=== PATIENT | male | born 1955 | race Caucasian/White ===

== ENCOUNTER 2018-02-02 22:34 | Inpatient (IN) | payer OTHER ==
[~2018-02-02] VITALS: Ht 177.8 cm; Wt 105.8 kg
[~2018-02-02 22:34] MED LIST: AUGMENTIN 875 M1 TAB PO; AUGMENTIN 875-1 EACH PO; BUPROPION HYDR300 M1 PO; CIPRODEX OTIC7.5 ML OT; CLONAZEPAM0.5 MG PO; DULOXETINE60 MG PO; MELOXICAM15 MG PO; NEURONTIN300 MG PO; PRAZOSIN HCL1 MG PO; ZIPRASIDONE HYD PO
--- NOTE | 2018-02-02 22:40 | ED CARDIAC/CP/PALPITATIONS ---
History of Present Illness General Chief Complaint: General Adult Stated Complaint: "ANXIETY OR HEART ATTACK" Source: patient Exam Limitations: no limitations Vital Signs & Intake/Output Vital Signs & Intake/Output Vital Signs Date Time Temp Pulse Resp B/P B/P Pulse O2 O2 Flow FiO2 Mean Ox Delivery Rate 02/03 0322 98.4 94 20 106/74 97 Room Air 02/03 0256 87 02/03 0221 144 142/80 / 0221 156 121/77 02/03 0221 156 121/77 02/03 0215 126 127/85 02/03 0215 126 127/85 02/03 0200 156 20 142/80 96 Room Air 02/03 0145 160 20 121/77 98 Room Air 02/03 0136 Room Air 02/02 2252 97.2 126 22 127/85 99 Allergies Coded Allergies: NO KNOWN ALLERGIES (06/02/12) Reconcile Medications Bupropion HCl (Wellbutrin Sr) 200 MG TABLET.ER 1 TAB PO BID MENTAL HEALTH ( Reported) Clonazepam 1 MG TABLET 1 TAB PO DAILY PRN ANXIETY (Reported) Gabapentin 300 MG CAPSULE 1 CAP PO TID MENTAL HEATLH (Reported) Triage Nurses Notes Reviewed? yes Onset: Abrupt Duration: minute(s): Timing: single episode today Quality/Severity: moderate Location: central, epigastric Radiation: no radiation Activities at Onset: emotional stress Modifying Factors: Improves With: rest. HPI: 62 yo gentleman, in prior good health, presents with 15-30 minutes of anxiety, and mid epigastric and central chest palpitions. "I was talking with my friend who has been going through some problems... and then I suddenly felt a pounding and a tightness in my chest and upper abdomen.... I got really anxious." He states that he was on clonazepam, but stopped recently. He notes no radiation, fever, chills, dyspnea, chest pain. He is otherwise well. Past History Travel History Traveled to [place] past 21 day No Medical History Any Pertinent Medical History? 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 No Review of Systems Review of Systems Constitutional: Denies: see HPI. Physical Exam Physical Exam Cardiovascular: regular rate/rhythm Comments: Review of Systems - except as otherwise noted in HPI Review of Systems Constitutional:no symptoms. EENTM:no symptoms. Respiratory:no symptoms. Cardiovascular:no symptoms. GI:no symptoms. Genitourinary:no symptoms. Musculoskeletal:no symptoms. Skin:no symptoms. Neurological/Psychological:no symptoms. Hematologic/Endocrine:no symptoms. Immunologic/Allergic:no symptoms. All Other Systems: Reviewed and Negative Physical Exam Physical Exam General Appearance: well developed/nourished, no apparent distress Head: atraumatic, normal appearance Eyes: Bilateral: normal appearance. Ears, Nose, Throat: normal pharynx, normal ENT inspection Neck: normal inspection, supple, full range of motion Respiratory: normal breath sounds, chest non-tender, no respiratory distress, quiet respiration, lungs clear Cardiovascular: tachycardic Gastrointestinal: normal bowel sounds, soft, non-tender, no organomegaly Back: normal inspection, normal range of motion Extremities: normal inspection, normal capillary refill, normal range of motion, no edema Neurologic/Psych: no motor/sensory deficits, awake, alert, oriented x 3 Skin: intact, normal color, warm/dry Core Measures ACS in differential dx? No CVA/TIA Diagnosis No Sepsis Present: No Sepsis Focused Exam Completed? No Progress Differential Diagnosis: anxiety vs sinus tach vs afib vs svt vs other. Plan of Care: Orders Procedure Date/time Status Regular Diet 02/03 B Active PARTIAL THROMBOPLASTIN TIME 02/03 0945 Active TROPONIN LEVEL 02/04 800 Active EKG 02/03 08 Active CBC WITHOUT DIFFERENTIAL 02/03 06 Active BASIC ELECTROLYTES PLUS BUN&CR 02/03 06 Active URINE DRUGS OF ABUSE 02/03 0356 Active Pathway - chart 02/03 0351 Active ECHOCARDIOGRAM 02/03 0351 Active Add-on Test (ER Only) 02/03 0304 Active Weight 02/03 0301 Active Patient Data 02/03 0259 Active Saline Lock 02/03 257 Active Misc Message 02/03 257 Active ED Holding Orders 02/03 257 Active Admit to inpatient 02/03 257 Active Vital Signs 02/03 257 Active Code Status 07/09 0257 Active EKG 02/03 0213 Active Add-on Test (ER Only) 02/03 0211 Active TROPONIN LEVEL 02/03 0130 Complete EKG 02/03 0130 Active Intake & Output 02/03 0107 Active Pathway - chart 02/03 UNK Active House Staff 02/03 UNK Active VTE Mechanical Prophylaxis 02/03 UNK Active Vital Signs 02/03 UNK Active Intake & Output 02/03 UNK Active Activity/Ambulation 02/03 UNK Active THYROID STIMULATING HORMONE 02/02 225 Complete PARTIAL THROMBOPLASTIN TIME 02/02 225 Complete PROTHROMBIN TIME 02/02 225 Complete TROPONIN LEVEL 02/02 224 Complete LIPASE 02/02 224 Complete HEPATIC FUNCTION PANEL 02/02 224 Complete D-DIMER 02/02 224 Complete CBC WITHOUT DIFFERENTIAL 02/03 2240 Complete BASIC METABOLIC PANEL 02/02 224 Complete AMYLASE 02/03 2240 Complete EKG 02/02 223 Active Current Medications Sig/Cresencio Start time Last Medication Dose Stop Time Status Admin Aspirin 81 MG DAILY 02/03 900 UNVr (Aspirin) Bupropion HCl 200 MG BID 02/03 900 UNVr (Wellbutrin SR) Gabapentin 300 MG TID 02/03 900 UNVr (Neurontin) Diltiazem HCl 60 MG Q6 02/03 600 UNVr (Cardizem) Clonazepam 1 MG DAILY PRN 02/03 0400 UNVr (Klonopin 1MG Tab) 02/10 0359 Heparin Sodium 25,000 UNIT Q24H 02/03 0315 UNVr 02/03 (Porcine) 0346 (Heparin) Sodium Chloride 500 ML Heparin Sodium 25,000 UNIT Q24H 02/03 0245 CAN (Porcine) (Heparin) Sodium Chloride 500 ML Laboratory Tests 02/03/18 0137: Troponin I < 0.01 02/02/182251: Anion Gap 15, Estimated GFR > 60, BUN/Creatinine Ratio 15.0, Glucose 137 H, Calcium 9.7, Total Bilirubin 0.8, Direct Bilirubin 0.3, AST 37, ALT 66, Alkaline Phosphatase 71, Troponin I < 0.01, Total Protein 7.5, Albumin 4.7, Amylase 41, Lipase 82, TSH 1.610, PT 12.0, INR 1.10, APTT 25, D-Dimer High Sensitivty < 200, CBC w Diff NO MAN DIFF REQ, RBC 5.01, MCV 95.9 H, MCH 33.3 H, MCHC 34.7, RDW 12.9, MPV 8.2, Gran % 62.7, Lymphocytes % 28.8, Monocytes % 5.5, Eosinophils % 2.2, Basophils % 0.8, Absolute Granulocytes 6.0, Absolute Lymphocytes 2.8, Absolute Monocytes 0.5, Absolute Eosinophils 0.2, Absolute Basophils 0.1 Diagnostic Imaging: Viewed by Me: Radiology Read. Discussed w/RAD: Radiology Read. CXR Impression: PATIENT: PRESTON FORDE PRESENT AGE: 62 PATIENT ACCOUNT NO: [id number] : 57 LOCATION: [facility] ORDERING PHYSICIAN: Delon Luna MD SERVICE DATE: 02/02/18 EXAM TYPE: RAD - XRY- PORTABLE CHEST XRAY EXAMINATION: XR PORTABLE CHEST CLINICAL INFORMATION: Chest pain COMPARISON: None TECHNIQUE: Portable frontal view of the chest was obtained. FINDINGS: The lungs are well expanded. There is no focal consolidation , edema, or effusion. No pneumothorax. The cardiomediastinal silhouette is within normal limits. No acute osseous abnormality. IMPRESSION: No acute pulmonary findings. DICTATED BY: Zion Kellogg MD DATE/TIME DICTATED:2340 [address] OPERATOR:ARIELA DATE/TIME TRANSCRIBED:02/02/182340 CONFIDENTIAL, DO NOT COPY WITHOUT APPROPRIATE AUTHORIZATION. <Electronically signed in Other Vendor System> SIGNED BY: Zion Kellogg MD 02/02/182344 Initial ED EKG: sinus tach vs svt Repeat EKG: unchanged Comments: ekg #3... afib, pulse 80's Departure Departure Disposition: HOME OR SELF CARE Condition: Stable Clinical Impression Primary Impression: Chest pain Secondary Impressions: Atrial fibrillation with rapid ventricular response Referrals: Sunny Berger MD (PCP/Family) Departure Forms: Customer Survey General Discharge Information Admission Note Spoke With: Albino Kwon MD Documentation of Exam: Documentation of any treatments & extenuating circumstances including Concerns Regarding Discharge (functional status, medication knowledge or non-compliance, living conditions, etc.) that warrant an admission rather than observation: pt with new onset afib, presenting with tachycardia. now rate controlled after lopressor 5mg iv, diltiazem 20mg iv, lopressor 50mg ... pt feeling more comfortable. Critical Care Note Critical Care Note Critical Care Time: 30-74 min Comments: pt with svt vs sinus tach... pt given adenosine 6mg without it breaking, then 12mg without it breaking, then lopressor 5mg, diltiazem 20mg.... pulse irregular in 80's... ekg #3, afib.
[2018-02-02 23:01] LABS: ABSOLUTE BASOPHIL COUNT 0.1 /CUMM (0.0-0.2); ABSOLUTE EOSINOPHIL COUNT 0.2 /CUMM (0.0-0.7); ABSOLUTE LYMPH COUNT 2.8 /CUMM (1.2-3.4); ABSOLUTE MONOCYTE COUNT 0.5 /CUMM (0.10-0.60); BASOPHIL % 0.8 % (0.0-2.0); EOSINOPHIL % 2.2 % (0-5); GRANULOCYTE % 62.7 % (42.2-75.2); MEAN CORPUSCULAR HGB 33.3 PG (27.0-31.0); MEAN CORPUSCULAR HGB CONC 34.7 G/DL (33.0-37.0); MEAN CORPUSCULAR VOLUME 95.9 FL (80.0-94.0); MEAN PLATELET VOLUME 8.2 FL (7.4-10.4); PLATELET COUNT 236 /CUMM (130-400); RBC DISTRIBUTION WIDTH 12.9 % (11.5-14.5); RED BLOOD CELL CT 5.01 /CUMM (4.70-6.10); WHITE BLOOD CELL COUNT 9.6 /CUMM (4.8-10.8)
--- NOTE | 2018-02-02 23:45 | RADIOLOGY REPORT ---
EXAMINATION: XR PORTABLE CHEST CLINICAL INFORMATION: Chest pain COMPARISON: None TECHNIQUE: Portable frontal view of the chest was obtained. FINDINGS: The lungs are well expanded. There is no focal consolidation, edema, or effusion. No pneumothorax. The cardiomediastinal silhouette is within normal limits. No acute osseous abnormality. IMPRESSION: No acute pulmonary findings.
--- NOTE | 2018-02-03 03:09 | History & Physical ---
JohnAbiolacan 02/03/18 0307: General Information and HPI MD Statement: I have seen and personally examined PRESTON VAZQUEZ and documented this H&P. The patient is a 62 year old M who presented with a patient stated chief complaint of chest tigtness, and palpitations Source of Information: patient Exam Limitations: no limitations History of Present Illness: Mr Vazquez is a 62-year-old gentleman was known to be in his usual state of health until a few hours prior to presentation. He has a past medical history of hyperlipidemia, bipolar disease, depression, anxiety. He came to the ER with a chief concern of palpitations and chest discomfort that started a few hours prior to presentation, after he had some emotional discussion with his close friend. He noticed palpitations that lasted for approximately few minutes, and was associated with epigastric discomfort. Also reported dizziness. No fever, chills, but has been having continued diarrheal episodes x 2-3 per day which is being worked up by GI for a possible malalbsorptive disorder. No neurological symptoms. Recent use of slightly increased use of coffee. Reported similar complaints a few months ago, and 10 m ago when he had ezcess use of alcohol but didnt pay much attention to these symptoms. No ivda, or alcohol use. He is not been drinking since he was told that he has fatty liver disease. No family h/o CAD, cancers. Reported to have increased depressive episodes lately, and has been using wellbutrin and clonazapam for tx. He was admitted to inpatient psych in the past, and reported to have been dealing with many social issues. 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 Psychosocial History Where do you live? Home Who Do You Live With? self ETOH Use: denies use Review of Systems Review of Systems Constitutional: Denies: diaphoresis, fever, malaise, weakness. EENTM: Denies: blurred vision, visual changes. Cardiovascular: Reports: palpitations. Denies: chest pain, edema, peripheral edema, syncope. Respiratory: Denies: cough. GI: Denies: abdominal pain. Genitourinary: Denies: dysuria, hematuria. Musculoskeletal: Denies: back pain. Skin: Denies: change in skin color. Neurological/Psychological: Reports: anxiety. Hematologic/Endocrine: Denies: bruising. Exam & Diagnostic Data Last 24 Hrs of Vital Signs/I&O Vital Signs Date Time Temp Pulse Resp B/P B/P Pulse O2 O2 Flow FiO2 Mean Ox Delivery Rate 02/03 0322 98.4 94 20 106/74 97 Room Air 02/03 0256 87 02/03 0221 144 142/80 02/03 0221 156 121/77 02/03 0221 156 121/77 02/03 0215 126 127/85 02/03 0215 126 127/85 02/03 0200 156 20 142/80 96 Room Air 02/03 0145 160 20 121/77 98 Room Air 02/03 0136 Room Air 02/02 2252 97.2 126 22 127/85 99 Intake & Output 02/03 0800 02/03 0000 02/02 1600 Intake Total 0 Output Total Balance 0 Intake, Oral 0 Patient 232 lb Weight Weight Standing Scale Measurement Method Physical Exam General Appearance Alert, Oriented X3, Cooperative, No Acute Distress Skin No Rashes, No Breakdown Skin Temp/Moisture Exam: Warm/Dry Sepsis Skin Exam (color): Normal for Ethnicity HEENT Atraumatic, PERRLA, EOMI, Mucous Membr. moist/pink Neck Supple, No JVD, No thryomegaly, +2 Carotid Pulse wo Bruit, No LAD Lymphatic Axillary nl, Cervical nl Cardiovascular Normal S1, Normal S2, No Murmurs, irregular Lungs Clear to Auscultation, Normal Air Movement Abdomen Normal Bowel Sounds, Soft, No Tenderness, No Hepatospenomegaly, No Masses Neurological Normal Speech, Strength at 5/5 X4 Ext, Normal Tone, Sensation Intact, Cranial Nerves 3-12 NL, Reflexes 2+ Extremities No Clubbing, No Cyanosis, No Edema, Normal Pulses Vascular Normal Pulses, Pulses Symmetrical Last 24 Hrs of Labs/Eilas: Laboratory Tests 02/03/18 0137: Troponin I < 0.01 07/08/18 2252: Anion Gap 15, Estimated GFR > 60, BUN/Creatinine Ratio 15.0, Glucose 137 H, Calcium 9.7, Total Bilirubin 0.8, Direct Bilirubin 0.3, AST 37, ALT 66, Alkaline Phosphatase 71, Troponin I < 0.01, Total Protein 7.5, Albumin 4.7, Amylase 41, Lipase 82, TSH 1.610, PT 12.0, INR 1.10, APTT 25, D-Dimer High Sensitivty < 200, CBC w Diff NO MAN DIFF REQ, RBC 5.01, MCV 95.9 H, MCH 33.3 H, MCHC 34.7, RDW 12.9, MPV 8.2, Gran % 62.7, Lymphocytes % 28.8, Monocytes % 5.5, Eosinophils % 2.2, Basophils % 0.8, Absolute Granulocytes 6.0, Absolute Lymphocytes 2.8, Absolute Monocytes 0.5, Absolute Eosinophils 0.2, Absolute Basophils 0.1 Diagnostic Data EKG Results Inital ekg- NSVT vs Afib Repeat EKG revealed Afib, HR 80s, No STTWI. Assessment/Plan Assessment: Mr Vazquez is a 62-year-old gentleman was known to be in his usual state of health until a few hours prior to presentation. He has a past medical history of hyperlipidemia, bipolar disease, depression, anxiety is being evaluated for new onset Atrial fibriallation, likely secondary to age or stimulants. At the time of admission-temperature 97.2, pulse rate 127, respiration 22, blood pressure 127/85, pulse ox 99% on room air. Pertinent Findings- sodium 142, potassium 3.5, anion gap 15, bicarbonate 23 BUN 15, creatinine 1.0. AST 37, ALT 66, alkaline phosphatase 71. Troponin I-0.01, 0.01. [id number] than 200. EKG revealed SVT possibly AVNRT. He was given adenosine IV 6 mg, 12 mg without any effect. He later received Lopressor 5 mg, diltiazem 20 mg. Continues to have heart rate in 80s. Chest x-ray-The lungs are well expanded. There is no focal consolidation, edema, or effusion. No pneumothorax. The cardiomediastinal silhouette is within normal limits. No acute osseous abnormality. No acute pulmonary findings. Etiology in this case of this arrhythmia with seemingly disorganized atrial depolarizations without effective atrial contraction is likely atrial fibrillation. Immediate treatment becomes imperative because it causes loss of organized atrial contractions and rapid ventricular rate that decreases his cardiac output and makes the prone to embolus formation. Etiology of Afib is likely drugs or alcohol, obesity, electrolyte abnormalities from his diarrha, or underlying cardiac disease such as cardiomyopathy, coronary artery disease. Age -related idiopathic causes are also likely. History indicates that the symptoms began < 48 hours, which would direct the treatment options. CHADVASC score 0/1. Problem list: 1. New onset Afib 2. R/o ACS 3. H/o Bipolar disease Plan: Admit the patient to telemetry service Monitor vitals closely for changes in hemodynamic status. Immediate synchronized electrical cardioversion if the patient is unstable. Rate control for now w/ Diltiazem 60mg q8. If the heart rate is not adequately controlled consider amiodarone for refractory atrial fibrillation. Plan for elective cardioversion with making sure the patient is anticoagulated with therapeutic levels for at least 4 weeks w/ a possible DOAC Continue his wellbutrin, clonapin. Check utox. He was already started on IV heparin, which could be continued for now; Defer the decision to the cards for now. Echocardiogram Code-Full code. As Ranked By This Provider Problem List: 1. Atrial fibrillation with rapid ventricular response Core Measures/Misc (04/14) Acute Coronary Syndrome ACS Diagnosis: No Congestive Heart Failure Congestive Heart Failure Diagnosis No VTE (View Protocol) VTE Risk Factors Acute Medical Illness No Mechanical VTE Prophylaxis d/t N/A MechProphylax Ordered No VTE Pharm Prophylaxis d/t NA PharmProphylax ordered Sepsis (View protocol) If YES complete Sepsis Event Note If YES complete Sepsis Event Note [place] 02/03/18 0543: General Information and HPI MD Statement: I have seen and personally examined EULAPRESTON Johnson and documented this H&P. The patient is a 62 year old M who presented with a patient stated chief complaint of [tachyarrythmia]. Source of Information: patient Exam Limitations: no limitations Allergies/Medications Home Med list Aspirin (Aspirin*) 81 MG TAB.CHEW 1 TAB PO DAILY HEART HEALTH Bupropion HCl (Wellbutrin Sr) 200 MG TABLET.ER 1 TAB PO BID MENTAL HEALTH ( Reported) Clonazepam 1 MG TABLET 1 TAB PO DAILY PRN ANXIETY (Reported) Gabapentin 300 MG CAPSULE 1 CAP PO TID MENTAL HEATLH (Reported) Past History Medical History Cardiovascular: hyperlipidemia Psychiatric: bipolar disease, DEPRESSION,ANXIETY, Surgical History Surgical History: non-contributory Past Family/Social History Psychosocial History ETOH Use: denies use Review of Systems Review of Systems Constitutional: Reports: see HPI. Exam & Diagnostic Data Last 24 Hrs of Vital Signs/I&O Vital Signs Date Time Temp Pulse Resp B/P B/P Pulse O2 O2 Flow FiO2 Mean Ox Delivery Rate 02/03 0322 98.4 94 20 106/74 97 Room Air 02/03 0256 87 02/03 0221 144 142/80 02/03 0221 156 121/77 02/03 0221 156 121/77 02/03 0215 126 127/85 02/03 0215 126 127/85 02/03 0200 156 20 142/80 96 Room Air 02/03 0145 160 20 121/77 98 Room Air 02/03 0136 Room Air 02/02 2252 97.2 126 22 127/85 99 Intake & Output 02/03 0800 02/03 0000 02/02 1600 Intake Total 0 Output Total Balance 0 Intake, Oral 0 Patient 232 lb Weight Weight Bed scale Measurement Method Physical Exam General Appearance Alert, Oriented X3, Cooperative, No Acute Distress Skin No Rashes, No Breakdown Skin Temp/Moisture Exam: Warm/Dry HEENT Atraumatic, PERRLA, EOMI, Mucous Membr. moist/pink Neck Supple, No JVD, No thryomegaly, +2 Carotid Pulse wo Bruit, No LAD Lymphatic Axillary nl, Cervical nl Cardiovascular Normal S1, Normal S2, No Murmurs, irregular irregular Lungs Clear to Auscultation, Normal Air Movement Abdomen Normal Bowel Sounds, Soft, No Tenderness, No Hepatospenomegaly, No Masses Neurological Normal Gait, Normal Speech Extremities No Clubbing, No Cyanosis Vascular Normal Pulses, Pulses Symmetrical Last 24 Hrs of Labs/Elias: Laboratory Tests 02/03/18 0137: Troponin I < 0.01 02/02/182251: Anion Gap 15, Estimated GFR > 60, BUN/Creatinine Ratio 15.0, Glucose 137 H, Calcium 9.7, Total Bilirubin 0.8, Direct Bilirubin 0.3, AST 37, ALT 66, Alkaline Phosphatase 71, Troponin I < 0.01, Total Protein 7.5, Albumin 4.7, Amylase 41, Lipase 82, TSH 1.610, PT 12.0, INR 1.10, APTT 25, D-Dimer High Sensitivty < 200, CBC w Diff NO MAN DIFF REQ, RBC 5.01, MCV 95.9 H, MCH 33.3 H, MCHC 34.7, RDW 12.9, MPV 8.2, Gran % 62.7, Lymphocytes % 28.8, Monocytes % 5.5, Eosinophils % 2.2, Basophils % 0.8, Absolute Granulocytes 6.0, Absolute Lymphocytes 2.8, Absolute Monocytes 0.5, Absolute Eosinophils 0.2, Absolute Basophils 0.1 Core Measures/Misc (04/14) Acute Coronary Syndrome ACS Diagnosis: Yes Congestive Heart Failure Congestive Heart Failure Diagnosis No Cerebrovascular Accident CVA/TIA Diagnosis: No VTE (View Protocol) VTE Risk Factors Acute Medical Illness No Mechanical VTE Prophylaxis d/t N/A MechProphylax Ordered No VTE Pharm Prophylaxis d/t NA PharmProphylax ordered Sepsis (View protocol) Sepsis Present: No If YES complete Sepsis Event Note If YES complete Sepsis Event Note Attending MD Review Statement Attending Statement Attending MD Statement: examined this patient, discuss w/resident/PA/HEMODIALYSIS PATIENT CARE SPECIALIST, agreed w/resident/PA/HEMODIALYSIS PATIENT CARE SPECIALIST, amended to note Attending Assessment/Plan: This patient is a 62-year-old white male was known to be in his usual state of health until a few hours prior to presentation. He has a past medical history of hyperlipidemia, bipolar disease, depression, anxiety is being evaluated for new onset atrial fibrillation. Troponin I-0.01, 0.01. [id number] than 200. EKG revealed SVT possibly AVNRT. He was given adenosine IV 6 mg, 12 mg without any effect. He later received Lopressor 5 mg, diltiazem 20 mg. Continues to have heart rate in 80s. No clear etiology identified. Rate control for now w/ Diltiazem 60mg q8. Plan for elective cardioversion with making sure the patient is anticoagulated with therapeutic levels for at least 4 weeks w/ a possible DOAC. R/O ACS.
[2018-02-03 03:17] LABS: PTT 25 SEC (25-37)
[2018-02-03] MEDS ORDERED: WELLBUTRIN SR200 M2 PO (03:53)
[2018-02-03] MEDS ORDERED: GABAPENTIN300 M2 PO (03:53)
[2018-02-03] MEDS ORDERED: CLONAZEPAM1 M2 PO (03:54)
[2018-02-03 06:04] VITALS: BP 110/60
--- NOTE | 2018-02-03 07:07 | PN- Housestaff ---
Jose Luis Mota 02/03/18 0706: Subjective Follow-up For: Chest pain, palpitations, atrial fibrillation Tele-Events Since Last Visit: Patient newly admitted to tele Subjective: Patient seen seated comfortably at the bedside, finishing breakfast. Patient explains that he came into the emergency department after experiencing a pressure-like chest pain, with an impending sense of dread, palpitations, and dizziness while driving. Patient reports that the symptoms have since resolved, but is agreeable as an inpatient for further cardiac workup. Patient has a history of anxiety, denies shortness of breath, lower extremity swelling/pain/ edema, cough. Review of Systems Constitutional: Denies: chills, diaphoresis, fever, malaise. Cardiovascular: Denies: chest pain, palpitations, peripheral edema. Respiratory: Denies: cough, short of breath, wheezing. Gastrointestinal: Denies: abdominal pain, nausea, vomiting. Objective Last 24 Hrs of Vital Signs/I&O Vital Signs Date Time Temp Pulse Resp B/P B/P Pulse O2 O2 Flow FiO2 Mean Ox Delivery Rate 02/03 0609 110 110/60 02/03 0604 97.9 110 20 110/60 96 02/03 0322 98.4 94 20 106/74 97 Room Air 02/03 0256 87 / 0221 144 142/80 / 0221 156 121/77 02/03 0221 156 121/77 02/03 0215 126 127/85 02/03 0215 126 127/85 02/03 0200 156 20 142/80 96 Room Air 02/03 0145 160 20 121/77 98 Room Air 02/03 0136 Room Air 02/02 2252 97.2 126 22 127/85 99 Intake & Output 02/03 0800 02/03 0000 02/02 1600 Intake Total 120 Output Total Balance 120 Intake, Oral 120 Patient 105.29 kg Weight Weight Bed scale Measurement Method Physical Exam General Appearance: Alert, Oriented X3, Cooperative, No Acute Distress Cardiovascular: Regular Rate, Normal S1, Normal S2, No Murmurs Lungs: Clear to Auscultation Abdomen: Normal Bowel Sounds, Soft, No Tenderness Neurological: Normal Gait, Normal Speech Extremities: No Clubbing, No Cyanosis, No Edema Vascular: Normal Pulses Current Medications: Current Medications Sig/Cresencio Start time Last Medication Dose Route Stop Time Status Admin Adenosine 12 MG ONCE ONE 02/03 215 DC 02/03 IV 02/03 0216 0215 Adenosine 0 .STK-MED ONE 02/03 0206 DC IV Adenosine 6 MG ONCE ONE 02/030 DC 02/03 IV 02/03 020 0221 Adenosine 0 .STK-MED ONE 02/03 020 DC IV Aspirin 81 MG DAILY 02/03 900 AC PO Aspirin 0 .STK-MED ONE 02/03 0315 DC PO Aspirin 325 MG ONCE ONE 02/03 0245 DC 02/03 PO 02/03 0246 0321 Bupropion HCl 200 MG BID 02/03 900 AC PO Clonazepam 1 MG DAILY PRN 02/03 0400 AC PO 02/10 0359 Diltiazem HCl 60 MG Q6 02/03 600 AC 02/03 PO 06 Diltiazem HCl 20 MG ONCE ONE 02/03 215 DC 02/03 IV 02/03 021 0221 Diltiazem HCl 0 .STK-MED ONE 02/03 021 DC .ROUTE Gabapentin 300 MG TID 02/03 900 AC PO Heparin Sodium 25,000 UNIT Q24H 02/03 0315 AC 02/03 (Porcine) IV 0346 Sodium Chloride 500 ML Heparin Sodium 0 .STK-MED ONE 02/03 0315 DC (Porcine) .ROUTE Heparin Sodium 5,000 UNIT ONCE ONE 02/03 0245 DC 02/03 (Porcine) IV 02/03 024 0321 Heparin Sodium 25,000 UNIT Q24H 02/03 0245 CAN (Porcine) IV Sodium Chloride 500 ML Lorazepam 0 .STK-MED ONE 02/03 0109 DC PO Lorazepam 1 MG ONE ONE 02/02 2300 DC 02/03 PO 02/02 230 0110 Metoprolol Tartrate 50 MG ONCE ONE 02/03 021 DC 02/03 PO 02/03 021 0215 Metoprolol Tartrate 0 .STK-MED ONE 02/03 0212 DC PO Metoprolol Tartrate 0 .STK-MED ONE 02/03 205 DC IV Metoprolol Tartrate 5 MG ONCE ONE 02/03 020 DC 02/03 IV 02/03 201 0221 Potassium Chloride 40 MEQ ONCE ONE 02/03 0715 UNVr PO 02/04 716 Last 24 Hrs of Lab/Elias Results Last 24 Hrs of Labs/Mics: Laboratory Tests 02/03/18 0137: Troponin I < 0.01 02/02/18 4012: Anion Gap 15, Estimated GFR > 60, BUN/Creatinine Ratio 15.0, Glucose 137 H, Calcium 9.7, Magnesium Pending, Total Bilirubin 0.8, Direct Bilirubin 0.3, AST 37, ALT 66, Alkaline Phosphatase 71, Troponin I < 0.01, Total Protein 7.5, Albumin 4.7, Amylase 41, Lipase 82, TSH 1.610, PT 12.0, INR 1.10, APTT 25, D- Dimer High Sensitivty < 200, CBC w Diff NO MAN DIFF REQ, RBC 5.01, MCV 95.9 H, MCH 33.3 H, MCHC 34.7, RDW 12.9, MPV 8.2, Gran % 62.7, Lymphocytes % 28.8, Monocytes % 5.5, Eosinophils % 2.2, Basophils % 0.8, Absolute Granulocytes 6.0, Absolute Lymphocytes 2.8, Absolute Monocytes 0.5, Absolute Eosinophils 0.2, Absolute Basophils 0.1 Assessment/Plan Assessment: Patient is a 62-year-old male who presented to the emergency department after experiencing pressure-like chest pain with an impending sense of dread and palpitations with dizziness while driving. Patient has a history of anxiety, pressure and bipolar disorder, and attributes these symptoms in part to recent stressful news regarding help a friend as well as extra coffee he had drank. Patient denied history of obstructive sleep apnea. In the ED he was found to be in atrial fibrillation. 8-year-old male being treated for atrial fibrillation 1. Atrial fibrillation 2. Anxiety, depression, bipolar disorder Problem List: 1. Atrial fibrillation 2. Chest pain 3. Anxiety 4. Dizziness 5. Bipolar 1 disorder Pain Ratin Pain Location: none Pain Goal: Pain 4 or less Pain Plan: tylenol Tomorrow's Labs & Rationales: BAYRON Jerry MD,Dwain 02/03/18 1422: Attending MD Review Statement Attending Statement Attending MD Statement: examined this patient, discuss w/resident/PA/SPECIALTY DEVELOPMENT CONSULTANT, agreed w/resident/PA/SPECIALTY DEVELOPMENT CONSULTANT, reviewed EMR data (avail), discussed with nursing, discussed with case mgmt, amended to note Attending Assessment/Plan: Patient seen and examined. Resting comfortably not in any acute distress. Denies chest pain or palpitations. Denies shortness of breath. He converted earlier this morning back to normal sinus rhythm. Patient reports that he has had similar palpitations on 2 occasions in the past he however did not seek medical attention at that time. His chads 2 vascular score is 0 although his echocardiogram is currently not available for review. This will place him at very low risk for cardioembolic events. TSH is within normal limits. He does not give history suggestive of obstructive sleep apnea. He has no underlying history of hypertension. He is not hypoxic and his d-dimer is negative making pulmonary embolism less likely. Plan: -Follow-up echocardiogram. -Follow-up with cardiology service regarding rate control regimen and need for long-term anticoagulations therapy. -He may be discharged home later on today if no further testing and intervention is recommended by the cardiology service
[2018-02-03 08:18] LABS: PTT 52 SEC (25-37)
[2018-02-03 08:25] LABS: ABSOLUTE BASOPHIL COUNT 0.1 /CUMM (0.0-0.2); ABSOLUTE EOSINOPHIL COUNT 0.3 /CUMM (0.0-0.7); ABSOLUTE GRANULOCYTE CT 5.4 /CUMM (1.4-6.5); ABSOLUTE LYMPH COUNT 2.3 /CUMM (1.2-3.4); ABSOLUTE MONOCYTE COUNT 0.4 /CUMM (0.10-0.60); BASOPHIL % 0.8 % (0.0-2.0); EOSINOPHIL % 3.3 % (0-5); GRANULOCYTE % 64.1 % (42.2-75.2); HEMATOCRIT 44.4 % (42-52); MEAN CORPUSCULAR HGB 33.1 PG (27.0-31.0); MEAN CORPUSCULAR HGB CONC 34.7 G/DL (33.0-37.0); MEAN CORPUSCULAR VOLUME 95.5 FL (80.0-94.0); MEAN PLATELET VOLUME 8.8 FL (7.4-10.4); PLATELET COUNT 208 /CUMM (130-400); RBC DISTRIBUTION WIDTH 13.4 % (11.5-14.5); RED BLOOD CELL CT 4.65 /CUMM (4.70-6.10); WHITE BLOOD CELL COUNT 8.4 /CUMM (4.8-10.8)
--- NOTE | 2018-02-03 11:24 | Patient Discharge Instructions ---
Discharge Instructions General Discharge Information You were seen/treated for: Atrial fibrillation Special Instructions: If you experience chest pain, dizziness, shortness of breath or palpitations, please go to your nearest emergency room. Also, please follow up with your statistics teacher and primary care provider in a week of discharge. Diet Continue normal diet: Yes Recommended Diet: Heart Healthy Activity Full Activity/No Limits: No Activity Self Limited: Yes Acute Coronary Syndrome Inclusion Criteria At DC or during hospital stay patient has or had the following: ACS DIAGNOSIS No Discharge Core Measures Meds if any: Prescribed or Continued at Discharge Meds if any: NOT Prescribed or Continued at Discharge Congestive Heart Failure Inclusion Criteria At DC or during hospital stay patient has or had the following: CHF DIAGNOSIS No Discharge Core Measures Meds if any: Prescribed or Continued at Discharge Meds if any: NOT Prescribed or Continued at Discharge Cerebrovascular accident Inclusion Criteria At DC or during hospital stay patient has or had the following: CVA/TIA Diagnosis No Discharge Core Measures Meds if any: Prescribed or Continued at Discharge Meds if any: NOT Prescribed or Continued at Discharge Venous thromboembolism Inclusion Criteria VTE Diagnosis No VTE Type NONE VTE Confirmed by (Test) NONE Discharge Core Measures - Per Current guidelines, there needs to be overlap - treatment for the first 5 days of Warfarin therapy. - If discharged on Warfarin prior to 5 days of - overlap therapy, the patient will need to be - assessed for post discharge needs including - *Post discharge parental anticoagulation - *Warfarin and/or parental anticoagulation education - *Follow up date to check INR post discharge At least 5 days overlap therapy as Inpatient No Meds if any: Prescribed or Continued at Discharge Note: Overlap Therapy is Warfarin and Anticoagulant Meds if any: NOT Prescribed or Continued at Discharge
[2018-02-03 13:17] VITALS: BP 110/82
[2018-02-03 14:49] VITALS: BP 102/72
[2018-02-03] MEDS ORDERED: ASPIRIN81 M4 PO (15:22)
[2018-02-03 17:26] LABS: PTT 68 SEC (25-37)
--- NOTE | 2018-02-03 20:03 | Cons- Cardiology ---
General Information and HPI Consulting Request Date of Consult: 02/03/18 Requested By: Dwain Jerry MD History of Present Illness: This patient is a 62 year old male with history of dyslipidemia who presented to the ER for evaluation of a single episode of chest discomfort. It was described as a moderate pressure sensation that was not radiating and lasted for about 30 minutes before resolving. He also noted mild shortness of breath and palpitations. The chest discomfort began while sitting in a car having an emotional discussion with a friend. No reported nasuea, vomiting or diaphoresis. Recently this patient has had episodes of diarrhea and is currently being worked up by GI for a possible problem with malabsorption. In the ER the patient was found to be in atrial fibrillation with rapid heart rate. The patient reports having similar symptoms a few months ago in the setting of alcohol abuse. He is not been drinking since he was told that he has fatty liver disease. Allergies/Medications Allergies: Coded Allergies: NO KNOWN ALLERGIES (06/02/12) Home Med List: Aspirin (Aspirin*) 81 MG TAB.CHEW 1 TAB PO DAILY HEART HEALTH Bupropion HCl (Wellbutrin Sr) 200 MG TABLET.ER 1 TAB PO BID MENTAL HEALTH ( Reported) Clonazepam 1 MG TABLET 1 TAB PO DAILY PRN ANXIETY (Reported) Gabapentin 300 MG CAPSULE 1 CAP PO TID MENTAL HEATLH (Reported) Review of Systems Review of Systems: diarrhea Past History Travel History Traveled to [place] past 21 day No Medical History Blood Transfusion Hx: No Neurological: NONE EENT: NONE Cardiovascular: hyperlipidemia Respiratory: NONE Gastrointestinal: NONE Hepatic: NONE Renal: NONE Musculoskeletal: gout Psychiatric: bipolar disease, DEPRESSION,ANXIETY, Endocrine: NONE Blood Disorders: NONE Cancer(s): NONE SUPERVISORY CBP OFFICER/Reproductive: NONE Surgical History Surgical History: non-contributory Family History Relations & Conditions If Any: MOTHER (CVA). Psychosocial History Where Do You Live? Home Who Do You Live With? self Services at Home: None Smoking Status: Never Smoked ETOH Use: denies use Exam & Diagnostic Data Vital Signs and I&O Vital Signs Date Time Temp Pulse Resp B/P B/P Pulse O2 O2 Flow FiO2 Mean Ox Delivery Rate 02/03 1758 80 102/72 02/03 1449 97.6 80 20 102/72 97 Room Air 02/03 1318 82 110/82 02/03 1317 82 110/82 02/03 0800 Room Air 02/03 0609 110 110/60 / 0604 97.9 110 20 110/60 96 / 0322 98.4 94 20 106/74 97 Room Air / 0256 87 / 0221 144 142/80 / 0221 156 121/77 / 0221 156 121/77 / 0215 126 127/85 / 0215 126 127/85 / 0200 156 20 142/80 96 Room Air 02/03 0145 160 20 121/77 98 Room Air 02/03 0136 Room Air / 2252 97.2 126 22 127/85 99 Intake & Output 02/03 1600 02/03 0800 / 0000 02/02 1600 02/02 0800 02/02 0000 Intake Total 966.1 120 Output Total Balance 966.1 120 Intake, IV 246.1 Intake, Oral 720 120 Patient 232 lb Weight Weight Bed scale Measurement Method Physical Exam: General: WD/overweight male in NAD; alert and oriented x 3 HEENT: NC/AT, PERRL, EOMI Neck: no JVD, no carotid bruit Heart: irregularly irregular Lungs: clear bilaterally ABdomen: soft, NT, +ve bowel sounds Extremities: no edema Assessment/Plan Assessment/Plan * This patient has newly discovered atrial fibrillation with rapid heart rate. Begin Eliquis 5mg BID for stroke prophylaxis. * Check a TSH and free T4. * Obtain an echocardiogram. * Begin Cardizem 120mg daily for rate control. * In the setting of his rapid heart rate this patient had chest discomfort suggestive of ischemia. Will plan on a stress test prior to discharge. Consult Acknowledgment - Thank you for your consult request.
[2018-02-03 22:59] VITALS: BP 110/70
[2018-02-04 05:07] LABS: ABSOLUTE BASOPHIL COUNT 0.1 /CUMM (0.0-0.2); ABSOLUTE EOSINOPHIL COUNT 0.3 /CUMM (0.0-0.7); ABSOLUTE GRANULOCYTE CT 4.4 /CUMM (1.4-6.5); ABSOLUTE LYMPH COUNT 2.2 /CUMM (1.2-3.4); ABSOLUTE MONOCYTE COUNT 0.4 /CUMM (0.10-0.60); BASOPHIL % 0.7 % (0.0-2.0); EOSINOPHIL % 3.9 % (0-5); GRANULOCYTE % 60.2 % (42.2-75.2); HEMATOCRIT 43.5 % (42-52); MEAN CORPUSCULAR HGB 33.5 PG (27.0-31.0); MEAN CORPUSCULAR HGB CONC 34.7 G/DL (33.0-37.0); MEAN CORPUSCULAR VOLUME 96.6 FL (80.0-94.0); MEAN PLATELET VOLUME 8.7 FL (7.4-10.4); PLATELET COUNT 191 /CUMM (130-400); RBC DISTRIBUTION WIDTH 13.5 % (11.5-14.5); RED BLOOD CELL CT 4.51 /CUMM (4.70-6.10); WHITE BLOOD CELL COUNT 7.3 /CUMM (4.8-10.8)
[2018-02-04 05:12] LABS: PTT 54 SEC (25-37)
[2018-02-04 06:58] VITALS: BP 108/70
--- NOTE | 2018-02-04 07:06 | ECHOCARDIOGRAM REPORT ---
PRESTON FORDE Age: 62 : 1955 Gender: M Exam Date: 02/03/2018 19:57 Exam Location: [address] Ht (in): 70 Wt (lb): 232 BSA: 2.31 BP: 110 / 60 Ordering Physician: Ngoc Lopez MD Referring Physician: Braulio Henry MD, PhD Technologist: Ines Gonzalez [facility] Room Number: [id number] Indications: AFIB/FLUTTER Rhythm: Sinus Technical Quality: good FINDINGS Left Ventricle Normal left ventricular size with mild left ventricular hypertrophy. Normal systolic function with no obvious regional wall motion abnormalities. Normal left ventricular diastolic filling pattern for age. The ejection fraction is visually estimated at 60%. Right Ventricle The right ventricle is normal in size and function. Right Atrium The right atrium is normal in size. Left Atrium The left atrium is mildly enlarged. The interatrial septum is intact. Mitral Valve The mitral valve is normal in structure and function. There is mild mitral regurgitation. Aortic Valve Structurally normal aortic valve without significant sclerosis or stenosis. There is trace aortic regurgitation. Tricuspid Valve The tricuspid valve is normal in structure and function. There is trace tricuspid regurgitation. Pulmonary artery systolic pressure is normal. Pulmonic Valve Structurally normal pulmonic valve. There is no pulmonic regurgitation. Pericardium Normal pericardium without effusion. No pleural effusion. Great Vessels Normal aortic root dimension. The aortic arch and great vessels are well seen and are normal. CONCLUSIONS 1. Normal EF of 60%. 2. Mild left ventricular hypertrophy. 3. Mild left atrial enlargement. 4. Mild mitral regurgitation. 5. Trace tricuspid regurgitation. 6. Trace aortic insufficiency. Braulio Henry M.D. (Electronically Signed) Final Date: 04 February 2018 07:05 MEASUREMENTS (Male / Female) Normal Values 2D ECHO LV Diastolic Diameter PLAX 4.1 cm 4.2 - 5.9 / 3.9 - 5.3 cm LV Systolic Diameter PLAX 2.4 cm 2.1 - 4.0 cm LV Fractional Shortening PLAX 41.5 % 25 - 46 % LV Ejection Fraction 2D Teich 72.8 % IVS Diastolic Thickness 1.2 cm LVPW Diastolic Thickness 1.2 cm LV Relative Wall Thickness 0.6 RV Internal Dim ED PLAX 2.7 cm 1.9 - 3.8 cm LVOT Diameter 2.3 cm Aortic Root Diameter 3.6 cm LA Systolic Diameter LX 4.1 cm 3.0 - 4.0 / 2.7 - 3.8 cm LA Volume 50.0 cm 18 - 58 / 22 - 52 cm Ascending Aorta Diameter 3.6 cm DOPPLER AV Peak Velocity 137.0 cm/s AV Peak Gradient 7.5 mmHg AV Mean Velocity 94.7 cm/s AV Mean Gradient 4.0 mmHg AV Velocity Time Integral 26.4 cm LVOT Peak Velocity 105.0 cm/s LVOT Peak Gradient 4.4 mmHg LVOT Mean Velocity 69.6 cm/s LVOT Mean Gradient 2.0 mmHg LVOT Velocity Time Integral 20.0 cm LVOT Stroke Volume 83.1 cm AV Area Cont Eq vti 3.1 cm AV Area Cont Eq pk 3.2 cm MV Peak Velocity 108.0 cm/s MV Peak Gradient 4.7 mmHg MV Mean Velocity 65.2 cm/s MV Mean Gradient 2.0 mmHg Mitral E Point Velocity 84.9 cm/s Mitral A Point Velocity 60.2 cm/s Mitral E to A Ratio 1.4 MV PHT Velocity 113.0 cm/s MV Deceleration [place] 544.0 cm/s MV Pressure Half Time 62.3 ms MV Area PHT 3.5 cm MV Deceleration Time 198.0 ms TR Peak Velocity 219.0 cm/s TR Peak Gradient 19.2 mmHg Right Atrial Pressure 5.0 mmHg Pulmonary Artery Systolic Pressure 24.2 mmHg Right Ventricular Systolic Pressure 24.2 mmHg PV Peak Velocity 86.8 cm/s PV Peak Gradient 3.0 mmHg PV Mean Velocity 62.4 cm/s PV Mean Gradient 2.0 mmHg PV Velocity Time Integral 17.5 cm LV E' Lateral Velocity 13.8 cm/s Mitral E to LV E' Lateral Ratio 6.2 LV E' Septal Velocity 11.1 cm/s Mitral E to LV E' Septal Ratio 7.6
--- NOTE | 2018-02-04 07:07 | PN- Housestaff ---
Jose Luis Mota 02/04/1804: Subjective Follow-up For: Paroxysmal atrial fibrillation Subjective: Patient seen resting comfortably in the bed. Overnight no acute events. Patient not currently complaining of any chest pain, shortness of breath, cough, palpitations, edema, dizziness, heartburn-like sensation. Patient does mention some "soreness" on his chest wall that he says feels muscular in nature. Review of Systems Constitutional: Denies: chills, diaphoresis, fever. Cardiovascular: Denies: chest pain, edema, palpitations, peripheral edema. Respiratory: Denies: cough, short of breath. Gastrointestinal: Denies: abdominal pain, nausea, vomiting. Objective Last 24 Hrs of Vital Signs/I&O Vital Signs Date Time Temp Pulse Resp B/P B/P Pulse O2 O2 Flow FiO2 Mean Ox Delivery Rate 02/04 0658 98.2 76 18 108/70 96 Room Air 02/04 0000 78 110/72 02/03 2259 97.4 86 20 110/70 96 02/03 1758 80 102/72 02/03 1449 97.6 80 20 102/72 97 Room Air 02/03 1318 82 110/82 02/03 1317 82 110/82 02/03 0800 Room Air Intake & Output 02/04 0800 02/04 0000 02/03 1600 Intake Total 360 400 966.1 Output Total Balance 360 400 966.1 Intake, IV 240 246.1 Intake, Oral 120 400 720 Patient 106.027 kg 48.308 kg Weight Weight Bed scale Measurement Method Physical Exam General Appearance: Alert, Oriented X3, Cooperative, No Acute Distress Neck: Supple, No JVD, No thryomegaly, +2 Carotid Pulse wo Bruit Cardiovascular: Regular Rate, Normal S1, Normal S2, No Murmurs Lungs: Clear to Auscultation Abdomen: Soft, No Tenderness Neurological: Normal Gait, Normal Speech Extremities: No Clubbing, No Cyanosis, No Edema, Normal Pulses Vascular: Normal Pulses Current Medications: Current Medications Sig/Cresencio Start time Last Medication Dose Route Stop Time Status Admin Acetaminophen 325 MG Q6P PRN 02/03 1630 AC PO Apixaban 5 MG BID 02/04 900 AC PO Aspirin 81 MG DAILY 02/03 900 AC 02/03 PO 0808 Bupropion HCl 200 MG BID 02/03 900 AC 02/03 PO 0808 Clonazepam 1 MG DAILY PRN 02/03 0400 AC 02/03 PO 02/10 0359 1812 Diltiazem HCl 120 MG DAILY 02/04 900 AC PO Diltiazem HCl 30 MG Q6 02/03 1200 DC 02/04 PO 0000 Diltiazem HCl 60 MG Q6 02/03 0600 DC 02/03 PO 0609 Gabapentin 300 MG TID 02/03 900 AC 02/03 PO 2111 Heparin Sodium 4,208 UNIT ONCE ONE 02/04 0530 DC 02/04 (Porcine) IV 02/04 0531 0604 Heparin Sodium 4,200 UNIT ONCE ONE 02/03 0833 DC 02/03 (Porcine) IV 02/03 0834 0951 Heparin Sodium 25,000 UNIT Q24H 02/03 0315 AC 02/03 (Porcine) IV 02/04 900 2332 Sodium Chloride 500 ML Potassium Chloride 40 MEQ 0715 02/03 715 DC 02/03 PO 02/03 0716 0951 Last 24 Hrs of Lab/Elias Results Last 24 Hrs of Labs/Mics: Laboratory Tests 02/04/18 0355: APTT 54 H, CBC w Diff NO MAN DIFF REQ, RBC 4.51 L, MCV 96.6 H, MCH 33.5 H, MCHC 34.7, RDW 13.5, MPV 8.7, Gran % 60.2, Lymphocytes % 30.0, Monocytes % 5.2, Eosinophils % 3.9, Basophils % 0.7, Absolute Granulocytes 4.4, Absolute Lymphocytes 2.2, Absolute Monocytes 0.4, Absolute Eosinophils 0.3, Absolute Basophils 0.1 02/03/18 1500: APTT 68 H Assessment/Plan Assessment: Patient is a 62-year-old male who presented to the emergency department after experiencing pressure-like chest pain with an impending sense of dread and palpitations with dizziness while driving. Patient has a history of anxiety, pressure and bipolar disorder, and attributes these symptoms in part to recent stressful news regarding help a friend as well as extra coffee he had drank. Patient denied history of obstructive sleep apnea. In the ED he was found to be in atrial fibrillation. 62-year-old male being treated for atrial fibrillation 1. Atrial fibrillation 2. Anxiety, depression, bipolar disorder Problem List: 1. Atrial fibrillation 2. Chest pain 3. Anxiety 4. Bipolar 1 disorder Pain Ratin Pain Location: none Pain Goal: Remain pain free Pain Plan: tylenol Tomorrow's Labs & Rationales: CBC, TSH, Free T4 Dwain Jerry MD 02/04/18 1158: Attending MD Review Statement Attending Statement Attending MD Statement: examined this patient, discuss w/resident/PA/DOUBLE ENDING MACHINE OPERATOR, agreed w/resident/PA/DOUBLE ENDING MACHINE OPERATOR, reviewed EMR data (avail), discussed with nursing, discussed with case mgmt, amended to note Attending Assessment/Plan: Patient seen and examined. Resting comfortably not in any acute distress. No issues overnight. No new complaints this morning. Remains in normal sinus rhythm. Cardiology consultation yesterday appreciated. Due to his complaints of chest tightness on presentation he is scheduled to go stress test today. If no evidence of ischemia he may be discharged home today. He has been started on anticoagulation therapy with Eliquis as recommended by the cardiology service.
[2018-02-04] MEDS ORDERED: DILTIAZEM ER120 M2 PO (07:27)
[2018-02-04] MEDS ORDERED: ELIQUIS5 M1 PO (11:01)
[2018-02-04 14:00] VITALS: BP 112/64
--- NOTE | 2018-02-04 17:10 | PN- Cardiology ---
Subjective Subjective: General: WD/overweight male in NAD; alert and oriented x 3 HEENT: NC/AT, PERRL, EOMI Neck: no JVD, no carotid bruit Heart: RRR Lungs: clear bilaterally ABdomen: soft, NT, +ve bowel sounds Extremities: no edema Objective Vital Signs and I&Os Vital Signs Date Time Temp Pulse Resp B/P B/P Pulse O2 O2 Flow FiO2 Mean Ox Delivery Rate 02/04 1400 98.3 88 20 112/64 96 02/04 0658 98.2 76 18 108/70 96 Room Air 02/04 0000 78 110/72 02/03 2259 97.4 86 20 110/70 96 02/03 1758 80 102/72 Intake & Output 02/04 1600 02/04 0800 02/04 0000 02/03 1600 02/03 0802/03 0000 Intake Total 360 400 966.1 120 Output Total Balance 360 400 966.1 120 Intake, IV 240 246.1 Intake, Oral 120 400 720 120 Patient 234 lb 107 lb 232 lb Weight Weight Bed scale Bed scale Measurement Method Assessment/Plan Assessment/Plan * This patient has newly discovered atrial fibrillation with rapid heart rate. Continue Eliquis 5mg BID for stroke prophylaxis. * Mild left atrial enlargement on echo. * Continue Cardizem 120mg daily for rate control. * In the setting of his rapid heart rate this patient had chest discomfort suggestive of ischemia. Stress test results pending. If no ischemia patient is stable for discharge with follow up in the office. Continue telemetry? Yes
--- NOTE | 2018-02-04 17:47 | NUCLEAR MEDICINE REPORT ---
EXERCISE STRESS AND RESTING SPECT MYOCARDIAL PERFUSION IMAGING STUDY WITH GATED SPECT IMAGES: CLINICAL INDICATION: Angina. PROCEDURE: Regional myocardial perfusion was assessed using a 1 day protocol. Stress images were obtained on 02/04/2018 following the intravenous administration of 19.8 mCi Tc 99m Myoview. Stress was performed using the standard [place] protocol, with the patient reaching a peak heart rate of 106% maximal predicted heart rate. Rest images were obtained 02/04/2018 following the intravenous administration of 42.3 mCi Technetium 99m Myoview. Single photon emission tomographic (SPECT) images were obtained. SPECT images were acquired in a 64 x 64 matrix of 64 projections over 180 degrees. These were reconstructed into standard short axis, horizontal and vertical long axis cardiac projections. FINDINGS: The post stress images show the left ventricular chamber to be normal in size. There is moderately decreased activity diffusely in the inferior wall, and this is probably due to attenuation by the adjacent diaphragm. The latter can be visualized on review of the raw acquired projections. The rest images are not significantly changed from the stress images. The stress images were obtained using a gated SPECT technique, which permits visualization of wall motion and calculation of the left ventricular ejection fraction. Left ventricular chamber is normal in size. No left ventricular wall motion abnormalities are noted. In particular, the inferior wall shows normal motion and evidence of thickening. The calculated left ventricular ejection fraction is 50% on the stress study. No previous study is available for comparison. IMPRESSION: Probable normal exercise stress myocardial perfusion study. Decreased activity in the inferior wall on both the stress and rest images is likely due to attenuation by the adjacent diaphragm. No left ventricular wall motion abnormalities are noted. The left ventricular ejection fraction is normal.
--- NOTE | 2018-02-04 21:16 | Event Note ---
Event Note Event Note: S: Toño Vazquez is a 62 YO male who tonight has a complaint of "chest discomfort." Patient states his chest discomfort is rated as a 1 out of 10 but denies any radiation of his symptoms. Patient decribes the pain as a stretching or tearing pressure on his chest for which he associates to his anxiety. Patient also reports some nausea in the previous couple of hours but is not currently nauseous. Patient states he last had a meal for lunch and has not eaten since. Patient says that he can get this type of chest discomfort with anxiety and has taken Clonazepam for relief of his symptoms in the past. B: Patient has history of new onset Atrial Fibrillation. Patient has PMHx. HLD, anxiety, bipolar disorder, and depression. Patient is on Cardiazem 120 mg for Afib and Clonazepam 1 mg for anxiety. A: Ordered EKG. EKG shows NSR. Troponin is normal (20:30) Chest pain is not reproducible on palpation. Patient is AAOx3, NAD. Cardiac exam is nl. R: Follow Troponin at 2 AM. Re-assess patient within the time period for resolution or progression of symptoms. Repeat EKG & Troponin (2 AM) - NSR; Troponin < 0.01 Patient is currently asleep.
[2018-02-04 22:03] VITALS: BP 110/68
[2018-02-05 05:38] VITALS: BP 120/72
--- NOTE | 2018-02-05 08:02 | PN- Housestaff ---
Jose Luis Mota 02/05/18 0801: Subjective Follow-up For: Chest pain, atrial fibrillation Subjective: Patient seen resting comfortably in the bed. Patient was to be discharged yesterday evening after stress test results, however patient began experiencing chest pain and was kept overnight in the setting of chest pain with stress test findings of "probable normal". Patient was given antianxiety medications, and the pain resolved. Otherwise no acute events, this morning patient not complaining of any pain, chest pain, shortness of breathing, dizziness, palpitations, cough. Review of Systems Constitutional: Reports: no symptoms. Cardiovascular: Denies: chest pain, palpitations, peripheral edema. Respiratory: Denies: cough, short of breath. Gastrointestinal: Denies: abdominal pain, nausea, vomiting. Neurological/Psychological: Reports: anxiety. Objective Last 24 Hrs of Vital Signs/I&O Vital Signs Date Time Temp Pulse Resp B/P B/P Pulse O2 O2 Flow FiO2 Mean Ox Delivery Rate 02/05 0538 98.3 80 20 120/72 95 Room Air 02/04 2203 98.1 84 20 110/68 96 Room Air 02/04 1400 98.3 88 20 112/64 96 Intake & Output 02/05 1600 02/05 0800 02/05 0000 Intake Total 100 50 Output Total Balance 100 50 Intake, Oral 100 50 Patient 105.8 kg Weight Weight Bed scale Measurement Method Physical Exam General Appearance: Alert, Oriented X3, Cooperative, No Acute Distress Cardiovascular: Regular Rate, Normal S1, Normal S2, No Murmurs Lungs: Clear to Auscultation Abdomen: Normal Bowel Sounds, Soft, No Tenderness Neurological: Normal Gait, Normal Speech Extremities: No Clubbing, No Cyanosis, No Edema, Normal Pulses Current Medications: Current Medications Sig/Cresencio Start time Last Medication Dose Route Stop Time Status Admin Acetaminophen 325 MG Q6P PRN 02/03 1630 AC PO Apixaban 5 MG BID 02/04 900 AC 02/04 PO 2000 Aspirin 81 MG DAILY 02/03 900 AC 02/04 PO 0839 Bupropion HCl 200 MG QAM 02/05 900 AC PO Bupropion HCl 200 MG BID 02/03 900 DC 02/04 PO 1426 Clonazepam 1 MG DAILY PRN 02/03 0400 AC 02/04 PO 02/10 0359 2109 Diltiazem HCl 120 MG DAILY 02/04 900 AC 02/04 PO 1800 Gabapentin 300 MG TID 02/03 900 AC 02/04 PO 2109 Heparin Sodium 25,000 UNIT Q24H 02/03 0315 DC 02/03 (Porcine) IV 02/04 900 2332 Sodium Chloride 500 ML Last 24 Hrs of Lab/Elias Results Last 24 Hrs of Labs/Mics: Laboratory Tests 02/05/18 0621: APTT Pending, CBC w Diff Pending, WBC Pending, RBC Pending, Hgb Pending, Hct Pending, MCV Pending, MCH Pending, MCHC Pending, RDW Pending, Plt Count Pending, MPV Pending 02/05/18 0223: Troponin I < 0.01 02/04/18 2035: Anion Gap 10, Estimated GFR > 60, BUN/Creatinine Ratio 14.4, Troponin I < 0.01 02/04/18 1130: APTT Cancelled Assessment/Plan Assessment: Patient is a 62-year-old male who presented to the emergency department after experiencing pressure-like chest pain with an impending sense of dread and palpitations with dizziness while driving. Patient has a history of anxiety, pressure and bipolar disorder, and attributes these symptoms in part to recent stressful news regarding help a friend as well as extra coffee he had drank. Patient denied history of obstructive sleep apnea. In the ED he was found to be in atrial fibrillation. 62-year-old male being treated for atrial fibrillation 1. Atrial fibrillation and rest imaging likely due to attenuation by diaphragm p.o. twice daily 2. Anxiety, depression, bipolar disorder Problem List: 1. Atrial fibrillation 2. Chest pain 3. Anxiety 4. Bipolar 1 disorder Pain Ratin Pain Location: None Pain Goal: Remain pain free Pain Plan: Tylenol Tomorrow's Labs & Rationales: None Dwain Jerry MD 02/05/18 1055: Attending MD Review Statement Attending Statement Attending MD Statement: examined this patient, discuss w/resident/PA/CLOTH HAND, agreed w/resident/PA/CLOTH HAND, reviewed EMR data (avail), discussed with nursing, discussed with case mgmt, amended to note Attending Assessment/Plan: Patient underwent nuclear stress test yesterday. It showed decreased perfusion in the inferior wall on both the stress and rest images likely due to attenuation by the adjacent diaphragm. No wall motion abnormalities were noted. He was scheduled for discharge yesterday however he complained of chest pain she was monitored overnight. Repeat troponins were negative and patient remaining sinus rhythm with no ischemic changes. He was evaluated by the ground operations crew member today. He has been cleared from a cardiac standpoint and will follow up in the outpatient setting. He will be discharged on Cardizem for rate control and Eliquis for anticoagulant therapy. He was educated on risks and precautions to take while on anticoagulation therapy.
--- NOTE | 2018-02-05 08:02 | PN- Cardiology ---
Subjective Subjective: * No complaints this morning. Last evening the patient reported a mild sensation feeling like a string across his left and right chest. * sinus rhythm * No ischemia on stress test. A small fixed defect was noted that may truly represent diaphragmatic attenuation. Objective Vital Signs and I&Os Vital Signs Date Time Temp Pulse Resp B/P B/P Pulse O2 O2 Flow FiO2 Mean Ox Delivery Rate 02/05 0538 98.3 80 20 120/72 95 Room Air 02/04 2203 98.1 84 20 110/68 96 Room Air 02/04 1400 98.3 88 20 112/64 96 Intake & Output 02/05 0802/05 0000 02/04 1600 02/04 0800 02/04 0000 02/03 1600 Intake Total 100 50 473.2 360 400 966.1 Output Total Balance 100 50 473.2 360 400 966.1 Intake, IV 113.2 240 246.1 Intake, Oral 100 50 360 120 400 720 Patient 233 lb 234 lb 107 lb Weight Weight Bed scale Bed scale Measurement Method Physical Exam: General: WD/overweight male in NAD; alert and oriented x 3 HEENT: NC/AT, PERRL, EOMI Neck: no JVD, no carotid bruit Heart: RRR Lungs: clear bilaterally ABdomen: soft, NT, +ve bowel sounds Extremities: no edema Assessment/Plan Assessment/Plan * This patient had newly discovered atrial fibrillation with rapid heart rate. Continue Eliquis 5mg BID for stroke prophylaxis. * Mild left atrial enlargement on echo. * Continue Cardizem 120mg daily for rate control. * In the setting of his rapid heart rate this patient had chest discomfort suggestive of ischemia. His stress test is negative for ischemia however. The discomfort last evening was very atypical and not associated with any ECG changes or rise in cardiac enzymes. Okay to discharge to home with follow up in the office from a cardiac perspective. Continue telemetry? No
[2018-02-05 08:26] LABS: ABSOLUTE BASOPHIL COUNT 0 /CUMM (0.0-0.2); ABSOLUTE EOSINOPHIL COUNT 0.2 /CUMM (0.0-0.7); ABSOLUTE GRANULOCYTE CT 3.9 /CUMM (1.4-6.5); ABSOLUTE LYMPH COUNT 1.6 /CUMM (1.2-3.4); ABSOLUTE MONOCYTE COUNT 0.4 /CUMM (0.10-0.60); BASOPHIL % 0.8 % (0.0-2.0); EOSINOPHIL % 3.4 % (0-5); GRANULOCYTE % 63.9 % (42.2-75.2); MEAN CORPUSCULAR HGB 33.6 PG (27.0-31.0); MEAN CORPUSCULAR VOLUME 95.9 FL (80.0-94.0); MEAN PLATELET VOLUME 8.5 FL (7.4-10.4); PLATELET COUNT 186 /CUMM (130-400); RBC DISTRIBUTION WIDTH 13.4 % (11.5-14.5); RED BLOOD CELL CT 4.48 /CUMM (4.70-6.10); WHITE BLOOD CELL COUNT 6.1 /CUMM (4.8-10.8)
[2018-02-05 09:39] LABS: PTT 29 SEC (25-37)
[2018-02-05] MEDS ORDERED: DILTIAZEM ER120 M2 PO (11:30)
[2018-02-05] MEDS ORDERED: ASPIRIN81 M4 PO (11:30)
[2018-02-05] MEDS ORDERED: ELIQUIS5 M1 PO (11:30)
== END 2018-02-05 12:50 | DRG 310 ==
LOC: DELPENDDIS → ERH 22:34 → 1NO 02-03 02:57 → ERHI 02-03 02:57 → ENRESERV 02-03 03:52 → 1NO 02-03 04:14 → ENPENDDIS 02-04 18:33 → 1NO 02-05 12:50
PROVIDERS: Internal Medicine; Internal Medicine Endocrinology, Diabetes & Metabolism; Pediatrics; Student in an Organized Health Care Education/Training Program
DX: I48.0 Paroxysmal atrial fibrillation (principal); R07.9 Chest pain, unspecified; Z68.33 Body mass index [BMI] 33.0-33.9, adult; F31.9 Bipolar disorder, unspecified; E66.3 Overweight; F41.9 Anxiety disorder, unspecified; E78.5 Hyperlipidemia, unspecified
CPT/HCPCS: 1NSP; 36415; 36592; 71045; 78452; 80307; 82436; 93005; 93010; 93016; 93017; 93306; 96374; 99281; A9502; J0153; J1644; J3490

== ENCOUNTER 2018-02-24 00:20 | Observation (INO) | payer OTHER ==
[~2018-02-24] VITALS: Ht 177.8 cm; Wt 105.2 kg
[~2018-02-24 00:20] MED LIST changes: +ASPIRIN81 M4 PO; +CLONAZEPAM1 M2 PO; +DILTIAZEM ER120 M2 PO; +ELIQUIS5 M1 PO; +GABAPENTIN300 M2 PO; +WELLBUTRIN SR200 M2 PO
--- NOTE | 2018-02-24 00:29 | ED CARDIAC/CP/PALPITATIONS ---
See Addendum History of Present Illness General Chief Complaint: Chest Pain Stated Complaint: HX OF AFIB, CHEST PRESSURE Source: patient Exam Limitations: no limitations Vital Signs & Intake/Output Vital Signs & Intake/Output Vital Signs Date Time Temp Pulse Resp B/P B/P Pulse O2 O2 Flow FiO2 Mean Ox Delivery Rate 02/24 0340 100 113/60 02/24 0238 96 20 105/68 96 Nasal 2.0L Cannula 02/24 0136 106 125/79 96 Nasal 2.0L Cannula 02/24 0056 Room Air 02/24 0049 123 124/90 02/24 0039 97.7 114 18 124/90 02/24 0038 97.7 114 18 124/90 95 Room Air 02/24 0022 97.3 166 22 132/98 96 Room Air Allergies Coded Allergies: NO KNOWN ALLERGIES (06/02/12) Reconcile Medications Apixaban (Eliquis) 5 MG TABLET 1 TAB PO BID A-FIB . Aspirin (Aspirin*) 81 MG TAB.CHEW 1 TAB PO DAILY HEART HEALTH . Bupropion HCl (Wellbutrin Sr) 200 MG TABLET.ER 1 TAB PO DAILY DEPRESSION ( Reported) Diltiazem Cd (Diltiazem ER) 120 MG CAP.ER.DEG 120 MG PO DAILY AFIB . Gabapentin 300 MG CAPSULE 1 CAP PO TID MENTAL HEATLH (Reported) Lorazepam 1 MG TABLET 1 TAB PO BID PRN ANXIETY (Reported) Triage Nurses Notes Reviewed? yes Onset: Gradual Duration: day(s): Timing: recent history HPI: 62 yo gentleman h/o afib, on eliquis, presents with pressure across his chest and palpitations, 2/10 "tightness" "all day," without radiation, shortness of breath. He is otherwise well. Past History Travel History Traveled to [place] past 21 day No Medical History Any Pertinent Medical History? see below for history Neurological: NONE EENT: NONE Cardiovascular: AFIB, hyperlipidemia Respiratory: NONE Gastrointestinal: NONE Hepatic: NONE Renal: NONE Musculoskeletal: gout Psychiatric: bipolar disease, DEPRESSION,ANXIETY, Endocrine: NONE Blood Disorders: NONE Cancer(s): NONE AVIATION ENGINEER/Reproductive: NONE History of MRSA: No History of VRE: No History of CDIFF: No Tetanus Vaccine: 08/20/14 Surgical History Surgical History: non-contributory Psychosocial History Who do you live with Friend Services at Home None What is your primary language Faroese Family History Family History, If Any: MOTHER (CVA). Hx Contributory? No Review of Systems Review of Systems Constitutional: Reports: no symptoms. EENTM: Reports: no symptoms. Respiratory: Reports: no symptoms. Cardiovascular: Reports: no symptoms. GI: Reports: no symptoms. Genitourinary: Reports: no symptoms. Musculoskeletal: Reports: no symptoms. Skin: Reports: no symptoms. Neurological/Psychological: Reports: no symptoms. Hematologic/Endocrine: Reports: no symptoms. Immunologic/Allergic: Reports: no symptoms. All Other Systems: Reviewed and Negative Physical Exam Physical Exam Cardiovascular: see below Comments: Physical Exam Physical Exam General Appearance: well developed/nourished, no apparent distress Head: atraumatic, normal appearance Eyes: Bilateral: normal appearance. Ears, Nose, Throat: normal pharynx, normal ENT inspection Neck: normal inspection, supple, full range of motion Respiratory: normal breath sounds, chest non-tender, no respiratory distress, quiet respiration, lungs clear Cardiovascular: tachy, irregularly, irregular Gastrointestinal: normal bowel sounds, soft, non-tender, no organomegaly Back: normal inspection, normal range of motion Extremities: normal inspection, normal capillary refill, normal range of motion, no edema Neurologic/Psych: no motor/sensory deficits, awake, alert, oriented x 3 Skin: intact, normal color, warm/dry Core Measures ACS in differential dx? No CVA/TIA Diagnosis No Sepsis Present: No Sepsis Focused Exam Completed? No Progress Differential Diagnosis: afib with rapid ventricular response Plan of Care: Orders Procedure Date/time Status Clear Liquid Diet 02/[address] in observation 02/24 0447 Active Pathway - chart 02/24 0433 Active House Staff 02/24 0433 Active Patient Data 02/24 0141 Active Saline Lock 02/24 0139 Active Misc Message 02/24 0139 Active ED Holding Orders 02/24 0139 Active Vital Signs 02/24 0139 Active Code Status 02/24 0139 Active Intake & Output 02/24 0039 Active TROPONIN LEVEL 02/24 0030 Complete LIPASE 02/24 0030 Complete HEPATIC FUNCTION PANEL 02/24 0030 Complete CBC WITHOUT DIFFERENTIAL 02/24 0030 Complete BASIC METABOLIC PANEL 02/24 0030 Complete AMYLASE 02/24 0030 Complete EKG 02/24 0022 Active VTE Mechanical Prophylaxis 02/24 UNK Active Activity/Ambulation 02/24 UNK Active Current Medications Sig/Cresencio Start time Last Medication Dose Stop Time Status Admin Apixaban 5 MG BID 02/24 900 UNVr (Eliquis) Aspirin 81 MG DAILY 02/24 900 UNVr (Aspirin) Bupropion HCl 200 MG DAILY 02/24 900 UNVr (Wellbutrin SR) Gabapentin 300 MG TID 02/24 900 UNVr (Neurontin) Diltiazem HCl 60 MG Q6 02/24 06 AC (Cardizem) Lorazepam 1 MG BID PRN 02/24 0445 UNVr (Ativan) Acetaminophen 650 MG Q6P PRN 02/24 0430 AC (Tylenol) Diltiazem HCl 125 MG Q8H 02/24 003 AC 02/24 (Cardizem DRIP) 0040 Sodium Chloride 100 ML (Normal Saline 0.9%) Laboratory Tests 02/24/18 003: Anion Gap 14, Estimated GFR > 60, BUN/Creatinine Ratio 16.0, Glucose 115 H, Calcium 9.7, Total Bilirubin 0.9, Direct Bilirubin 0.3, AST 32, ALT 55, Alkaline Phosphatase 76, Troponin I < 0.01, Total Protein 7.6, Albumin 4.6, Amylase 47, Lipase 70, CBC w Diff NO MAN DIFF REQ, RBC 4.93, MCV 95.3 H, MCH 33.7 H, MCHC 35.4, RDW 12.8, MPV 8.0, Gran % 64.2, Lymphocytes % 22.9, Monocytes % 5.9, Eosinophils % 6.2 H, Basophils % 0.8, Absolute Granulocytes 7.5 H, Absolute Lymphocytes 2.7, Absolute Monocytes 0.7 H, Absolute Eosinophils 0.7, Absolute Basophils 0.1 Diagnostic Imaging: Viewed by Me: Radiology Read. Discussed w/RAD: Radiology Read. CXR Impression: PATIENT: PRESTON FORDE PRESENT AGE: 62 PATIENT ACCOUNT NO: [id number] : 57 LOCATION: [facility] ORDERING PHYSICIAN: Delon Luna MD SERVICE DATE: 02/24/18 EXAM TYPE: RAD - XRY- PORTABLE CHEST XRAY EXAMINATION: CHEST 1 VIEW CLINICAL INFORMATION: Chest pain. COMPARISON: February 02, 2018. TECHNIQUE: An AP view of the chest is provided. FINDINGS: The cardiac silhouette is not enlarged. The mediastinal and hilar contours are unremarkable. There are neither pleural effusions nor pneumothoraces. There are no consolidations. The osseous structures are stable. IMPRESSION: No evidence for acute disease. DICTATED BY: Nicolas Barr MD DATE/ TIME DICTATED:02/24/18117 ENERGY BROKER:ARIELA DATE/TIME TRANSCRIBED: 02/24/18117 CONFIDENTIAL, DO NOT COPY WITHOUT APPROPRIATE AUTHORIZATION. < Electronically signed in Other Vendor System> SIGNED BY: Nicolas Barr MD 02/24/18 0122 Initial ED EKG: afib with rvr... prior ekg 02/05/18, nsr. Departure Departure Disposition: STILL A PATIENT Condition: Stable Clinical Impression Primary Impression: Atrial fibrillation with rapid ventricular response Referrals: Celine JACKSON,Sunny Edwards (PCP/Family) Departure Forms: Customer Survey General Discharge Information Admission Note Spoke With: Albino Kwon MD Documentation of Exam: Documentation of any treatments & extenuating circumstances including Concerns Regarding Discharge (functional status, medication knowledge or non-compliance, living conditions, etc.) that warrant an admission rather than observation: pt with afib with rapid ventricular response... merits dilt gtt, cards eval in AM, serial trops/monitoring. Pt now chest pain free. Critical Care Note Critical Care Note Critical Care Time: 30-74 min
[2018-02-24 00:42] LABS: ABSOLUTE BASOPHIL COUNT 0.1 /CUMM (0.0-0.2); ABSOLUTE EOSINOPHIL COUNT 0.7 /CUMM (0.0-0.7); ABSOLUTE GRANULOCYTE CT 7.5 /CUMM (1.4-6.5); ABSOLUTE LYMPH COUNT 2.7 /CUMM (1.2-3.4); ABSOLUTE MONOCYTE COUNT 0.7 /CUMM (0.10-0.60); BASOPHIL % 0.8 % (0.0-2.0); EOSINOPHIL % 6.2 % (0-5); GRANULOCYTE % 64.2 % (42.2-75.2); MEAN CORPUSCULAR HGB 33.7 PG (27.0-31.0); MEAN CORPUSCULAR HGB CONC 35.4 G/DL (33.0-37.0); MEAN CORPUSCULAR VOLUME 95.3 FL (80.0-94.0); PLATELET COUNT 249 /CUMM (130-400); RBC DISTRIBUTION WIDTH 12.8 % (11.5-14.5); RED BLOOD CELL CT 4.93 /CUMM (4.70-6.10); WHITE BLOOD CELL COUNT 11.6 /CUMM (4.8-10.8)
--- NOTE | 2018-02-24 01:22 | RADIOLOGY REPORT ---
EXAMINATION: CHEST 1 VIEW CLINICAL INFORMATION: Chest pain. COMPARISON: February 02, 2018. TECHNIQUE: An AP view of the chest is provided. FINDINGS: The cardiac silhouette is not enlarged. The mediastinal and hilar contours are unremarkable. There are neither pleural effusions nor pneumothoraces. There are no consolidations. The osseous structures are stable. IMPRESSION: No evidence for acute disease.
--- NOTE | 2018-02-24 01:48 | History & Physical ---
Beltran Kelley 02/24/18 0147: General Information and HPI MD Statement: I have seen and personally examined PRESTON VAZQUEZ and documented this H&P. The patient is a 62 year old M who presented with a patient stated chief complaint of [Chest tightness]. Source of Information: patient Exam Limitations: no limitations History of Present Illness: Mr. Vazquez is a 62-year-old gentleman with a past medical history significant for atrial fibrillation, hyperlipidemia, gout, bipolar disease, and anxiety who has come to the ER with chief complaint of chest tightness that he had all day. On the day of admission he has started his stay late, and he had a coffee which was not decaffeinated (this is the first time that he had regular coffee after he was discharged from the hospital). Then he had gone for work with his friend for 30 minutes about 1-1/2 miles. Hold during the day he had a tightness in his chest. After tenure he went to bed at nighttime, while he was watching TV he is started feeling palpitations. He checked his heart rate on his smart watch, it was about 110. Then the watch was not able to show anything and reported atrial fibrillation when he downloaded the data from the bruno. He came to ER for evaluation of his tachycardia and chest tightness. The first time that he had a thrill in fibrillation was seen last March after he was drinking, the next time was 2.5 months ago when he failed palpitations; he reports that it always happens at night. He does not recall whether he has taken his morning medication on the day of admission or not, he is thinking he might have taken them but he is not sure. 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 Jerzy Caban. Review of systems: He denies diaphoresis, nausea, vomiting, lightheadedness, dizziness, chills, fever, constipation, diarrhea, abdominal pain, dysuria, frequency, leg swelling, Past medical history: Atrial fibrillation, hyperlipidemia, bipolar disease, depression, anxiety, gallops, Past surgical history: Noncontributory Family history: CVA in his mother otherwise not significant Social history: He has stopped drinking since he was informed that he has atrial fibrillation Allergies: No known allergies to drug EKG: Previous EKG from last admission shows normal sinus rhythm normal rate no axis deviation normal QT, [place], no ST segment changes EKG on admission: Atrial fibrillation with ST depression in V4 to 6 Imaging: Chest x-ray did not show any acute abnormality Allergies/Medications Allergies: Coded Allergies: NO KNOWN ALLERGIES (06/02/12) Compliance With Home Meds: GOOD Past History Travel History Traveled to [place] past 21 day No Medical History Neurological: NONE EENT: NONE Cardiovascular: AFIB, hyperlipidemia Respiratory: NONE Gastrointestinal: NONE Hepatic: NONE Renal: NONE Musculoskeletal: gout Psychiatric: bipolar disease, DEPRESSION,ANXIETY, Endocrine: NONE Blood Disorders: NONE Cancer(s): NONE INSURANCE ANALYST/Reproductive: NONE History of MRSA: No History of VRE: No History of CDIFF: No Tetanus Vaccine: 08/20/14 Surgical History Surgical History: non-contributory Past Family/Social History Family History Relations & Conditions if any MOTHER (CVA). Psychosocial History Who Do You Live With? self Services at Home: None Review of Systems Review of Systems Constitutional: Reports: see HPI. EENTM: Reports: see HPI. Cardiovascular: Reports: see HPI, palpitations. Respiratory: Reports: see HPI. GI: Reports: see HPI. Genitourinary: Reports: see HPI. Musculoskeletal: Reports: see HPI. Skin: Reports: see HPI. Neurological/Psychological: Reports: see HPI. Hematologic/Endocrine: Reports: see HPI. Immunologic/Allergic: Reports: see HPI. Exam & Diagnostic Data Last 24 Hrs of Vital Signs/I&O Vital Signs Date Time Temp Pulse Resp B/P B/P Pulse O2 O2 Flow FiO2 Mean Ox Delivery Rate 02/24 0340 100 113/60 02/24 0238 96 20 105/68 96 Nasal 2.0L Cannula 02/24 0136 106 125/79 96 Nasal 2.0L Cannula 02/24 0056 Room Air 02/24 0049 123 124/90 02/24 0039 97.7 114 18 124/90 02/24 0038 97.7 114 18 124/90 95 Room Air 02/24 0022 97.3 166 22 132/98 96 Room Air Intake & Output 02/24 0800 02/24 0000 02/23 1600 Intake Total 0 Output Total Balance 0 Intake, Oral 0 Patient 232 lb Weight Weight Reported by Patient Measurement Method Physical Exam General Appearance Alert, Oriented X3, Cooperative, No Acute Distress Skin No Rashes, No Breakdown Skin Temp/Moisture Exam: Warm/Dry Sepsis Skin Exam (color): Normal for Ethnicity HEENT Atraumatic, PERRLA, EOMI Neck Supple, No JVD, No LAD Cardiovascular Regular Rate, Normal S1, Normal S2 Lungs Clear to Auscultation, Normal Air Movement Abdomen Normal Bowel Sounds, Soft, No Tenderness, No Masses Neurological Normal Speech, Strength at 5/5 X4 Ext, Normal Tone, Sensation Intact Extremities No Clubbing, No Cyanosis, No Edema, Normal Pulses, No Tenderness/ Swelling Vascular Normal Pulses, Pulses Symmetrical Sepsis Peripheral Pulse Location: Dorsalis Pedis Sepsis Peripheral Pulse Exam: Normal Sepsis Cap Refill Exam: <2 Sec Assessment/Plan Assessment: The patient is a 62-year-old male past medical history of atrial fibrillation, hyperlipidemia, gout, anxiety who has come to the ED for chief complaint of chest tightness during the day of admission palpitation at night. During the history and physical examination patient has no complaints, no chest tightness or pain,, no palpitation. His heart rate was from 90-130. Physical examination heart rate was irregularly irregular. Lab data showed WBC: 11.6, Hb 16.6, HCT 47.0, platelets 249, sodium 143, potassium 3.6, chloride 105, bicarb 26, BUN 16, creatinine 1.0, blood sugar 115, calcium 9.7, amylase 47, lipase 70, troponin less than 0.01, and LFT was within normal limits. Showed atrial fibrillation with RVR and new ST segment depression in leads V3 through 6. He is a known case of atrial fibrillation who presented to the ED for chief complaint of chest pains palpitations after probably forgetting to take his medications. The ST segment changes and chest tightness feeling could be caused by increased heart rate and demand ischemia. Units we will have to recheck serial EKG and troponin levels. Problem list: 1. Atrial fibrillation with RVR probably due to skipping morning medication 2. Reactive leukocytosis 3. Chest tightness with ST depression in leads V3 to 6 4. Hyperlipidemia 5. Anxiety/depression 6. Obesity 7. Bipolar disorder As Ranked By This Provider Problem List: 1. Atrial fibrillation with rapid ventricular response 2. Chest pain 3. Depression 4. Anxiety 5. Bipolar 1 disorder Core Measures/Misc (04/14) Acute Coronary Syndrome ACS Diagnosis: No Congestive Heart Failure Congestive Heart Failure Diagnosis No Cerebrovascular Accident CVA/TIA Diagnosis: No VTE (View Protocol) VTE Risk Factors Age>40 No Mechanical VTE Prophylaxis d/t N/A MechProphylax Ordered No VTE Pharm Prophylaxis d/t NA PharmProphylax ordered Sepsis (View protocol) Sepsis Present: No If YES complete Sepsis Event Note If YES complete Sepsis Event Note Joe Ortega MD 02/24/18 0420: General Information and HPI Allergies/Medications Home Med list Apixaban (Eliquis) 5 MG TABLET 1 TAB PO BID A-FIB . Aspirin (Aspirin*) 81 MG TAB.CHEW 1 TAB PO DAILY HEART HEALTH . Bupropion HCl (Wellbutrin Sr) 200 MG TABLET.ER 1 TAB PO DAILY DEPRESSION ( Reported) Diltiazem Cd (Diltiazem ER) 120 MG CAP.ER.DEG 120 MG PO DAILY AFIB . Dronedarone HCl (Multaq) 400 MG TABLET 1 TAB PO BID HEART 400MG BID Gabapentin 300 MG CAPSULE 1 CAP PO TID MENTAL HEATLH (Reported) Lorazepam 1 MG TABLET 1 TAB PO BID PRN ANXIETY (Reported) Core Measures/Misc (04/14) Sepsis (View protocol) If YES complete Sepsis Event Note If YES complete Sepsis Event Note Resident Review Statement Resident Statement: examined this patient, discussed with summer internship, agreed with summer internship, reviewed EMR data (avail) Other Findings: History of Present Illness 62 year old man with past medical history of atrial fibrillation on eliquis, hyperlipidemia, bipolar disoder, anxiety, and obesity seen for evaluation of chest discomfort. Patient was previously admitted to from 02/03/18 to 02/05/18 for evaluation of palpitations with epigastric discomfort where he was found to be in new onset atrial fibrillation for which he was started on eliquis and cardizem. Echocardiogram and Stress test were normal at this time; he converted to normal sinus rhythm prior to discharge. Patient was discharged to home with instruction to follow up as an outpatient. Patient reports waking up late today which is abnormal for him. He does not recall if he took his medications. He otherwise felt fine and went about his day. He drank a small amount of coffee for the first time since his recent hospitalization. He began to feel a mid 2/10 discomfort across his chest that was worse on exertion throughout the day. He went out to Dinner and went for a 30 minute walk with persistence of his symptoms. He returned home and tried to sleep but due to his persistent symptoms came to the [place] ED. He was found to be in afib with rapid ventricular response for which he was given oral cardizem and started on a drip with an intravenous push of metoprolol. He currently feels well and has no complaints. Review of Systems He otherwise denies any headache, fever, chills, vision changes, current chest pain, palpitations, shortness of breath, nausea, vomiting, diarrhea, constipation. Objective Vitals: Temp 97.3-97.7, HR 114-166, RR 18-22, BP 124-132/90-98, SpO2 95-96% on room air Physical Exam -General: well developed, obese middle aged man in no acute distress -HEENT: NCAT, PERRL, EOMI, anicteric sclera, moist mucous membranes -Neck: Supple, no JVD, trachea midline -Cardio: irregularly irregular, tachycardic -Pulmonary: Diminished bibasilar airflow -Abdomen: Soft, NT, ND, BS+ -Neuro: Awake and alert, CN II-XII grossly intact -Extremities: noraml pulses, no edema Labs / Imaging / Studies -CBC: WBC 11.6, HGB 16.6, HCT 47.0, PLT 249 -BMP: Na 143, K 3.6, Cl 105, Co2 24, BUN 16, Cr 1.0, AG 14, Glu 115 -LFT: within normal limits -Misc: Troponin I <0.01, amylase/lipase negative -EKG 02/05/18: normal sinus rhythm -EKG 02/24/18: Afib with RVR, prolonged QTc, [address] depression V3-V6 -Echocardiogram 02/03/18: LVEF 60% without regional wall motion abnormalities, mild MR, mild LVH -Stress 02/04/18: * Probable normal exercise stress myocardial perfusion study. * Decreased activity in the inferior wall on both the stress and rest images is likely due to attenuation by the adjacent diaphragm. No left ventricular wall motion abnormalities are noted. The left ventricular ejection fraction is normal. -CXR: No evidence for acute disease. Assessment 62 year old man with multiple medical problems recently diagnosed and hospitalized for atrial fibrillation seen for chest discomfort. Present patient feels well and has no complaints. Vitals signs are now within normal limits, but heart rate was up to the 150s. Physical examination is only remarkable for an irregularly irregular pulse with tachycardia. Labs including CBC, BMP, LFT, troponin, amylase, and lipase are within normal limits except for WBC 11.6 and K 3.6. EKG demonstrates afib with RVR and new ST depression V3-V6. Clinically patient appears to have converted back to atrial fibrillation with rapid ventricular response in the context chest pain and likely rate related ST segment depression. Patient has an essentially normal stress test several weeks ago however possibly has underlying non-obstructive coronary artery disease that may need further evaluation as an outpatient. Patient is being placed under observation on the telemetry floor for telemetry monitoring, rate control, and cardiology evaluation. Problem List -Atrial Fibrillation with rapid ventricular response, likely due to medication non-compliance -Leukocytosis, likely reactive -Chest pain with ST depression V3-V6, likely rate related -Hyperlipidemia -Bipolar disorder -Anxiety / Depression -Obesity Plan -Place under observation on telemetry floor -Telemetry monitoring -Cardizem Drip @ 15 mL/hr, titrate down to HR < 110 -Start Cardizem 60 mg PO Q6H, titrate PRN and convert to CD prior to discharge -Continue home meds: Eliquis, Aspirin, Wellbutrin, Gabapentin, Ativan -No need for labs tomorrow -Consult with Cardiology for AFib -Pain control with acetaminophen -Regular Diet -DVT PPx with Eliquis -FULL CODE [facility] 0507: General Information and HPI MD Statement: I have seen and personally examined PRESTON VAZQUEZ and documented this H&P. The patient is a 62 year old M who presented with a patient stated chief complaint of [chest discomfort]. Source of Information: patient Exam Limitations: no limitations Allergies/Medications Compliance With Home Meds: GOOD Past History Medical History Cardiovascular: AFIB, hyperlipidemia Musculoskeletal: gout Psychiatric: bipolar disease Past Family/Social History Psychosocial History Smoking Status: Never Smoked ETOH Use: denies use (recently quit) Illicit Drug Use: denies illicit drug use Employment History Employment Employed Review of Systems Review of Systems Constitutional: Reports: see HPI. Exam & Diagnostic Data Last 24 Hrs of Vital Signs/I&O Vital Signs Date Time Temp Pulse Resp B/P B/P Pulse O2 O2 Flow FiO2 Mean Ox Delivery Rate 02/24 0340 100 113/60 02/24 0238 96 20 105/68 96 Nasal 2.0L Cannula 02/24 0136 106 125/79 96 Nasal 2.0L Cannula 02/24 0056 Room Air 02/24 0049 123 124/90 02/24 0039 97.7 114 18 124/90 02/24 0038 97.7 114 18 124/90 95 Room Air 02/24 0022 97.3 166 22 132/98 96 Room Air Intake & Output 02/24 0800 02/24 0000 02/23 1600 Intake Total 0 Output Total Balance 0 Intake, Oral 0 Patient 232 lb Weight Weight Reported by Patient Measurement Method Physical Exam General Appearance Alert, Oriented X3, Cooperative, No Acute Distress Skin No Rashes, No Breakdown HEENT Atraumatic, PERRLA, EOMI Neck Supple, No JVD Lymphatic Axillary nl, Cervical nl Cardiovascular Regular Rate, Normal S1, Normal S2 Lungs Clear to Auscultation, Normal Air Movement Abdomen Normal Bowel Sounds, Soft, No Tenderness Neurological Normal Gait, Normal Speech Last 24 Hrs of Labs/Elias: Laboratory Tests 02/24/18 0030: Anion Gap 14, Estimated GFR > 60, BUN/Creatinine Ratio 16.0, Glucose 115 H, Calcium 9.7, Total Bilirubin 0.9, Direct Bilirubin 0.3, AST 32, ALT 55, Alkaline Phosphatase 76, Troponin I < 0.01, Total Protein 7.6, Albumin 4.6, Amylase 47, Lipase 70, CBC w Diff NO MAN DIFF REQ, RBC 4.93, MCV 95.3 H, MCH 33.7 H, MCHC 35.4, RDW 12.8, MPV 8.0, Gran % 64.2, Lymphocytes % 22.9, Monocytes % 5.9, Eosinophils % 6.2 H, Basophils % 0.8, Absolute Granulocytes 7.5 H, Absolute Lymphocytes 2.7, Absolute Monocytes 0.7 H, Absolute Eosinophils 0.7, Absolute Basophils 0.1 Core Measures/Misc (04/14) Sepsis (View protocol) If YES complete Sepsis Event Note If YES complete Sepsis Event Note Attending MD Review Statement Attending Statement Attending MD Statement: examined this patient, discuss w/resident/PA/CUSTOMER ACCOUNT EXECUTIVE, agreed w/resident/PA/CUSTOMER ACCOUNT EXECUTIVE, amended to note Attending Assessment/Plan: This patient is a 62 year old male with a significant past medical history for atrial fibrillation on Eliquis, hyperlipidemia, and bipolar disorder seen for evaluation of chest discomfort. The patient was previously admitted to from 02/03/18 to 02/05/18 for evaluation of palpitations with epigastric discomfort where he was found to be in new onset atrial fibrillation for which he was started on Eliquis and Cardizem. Echocardiogram and Stress test were normal at this time; he converted to normal sinus rhythm prior to discharge. Patient was discharged to home with instruction to follow up as an outpatient. The patient does not recall if he took his medications. He began to feel a mid-2 /10 discomfort across his chest that was worse on exertion throughout the day. The symptoms persisted came to the [place] ED. He was found to be in afib with rapid ventricular response for which he was given oral Cardizem and started on a drip with an intravenous push of metoprolol. Evaluation while in the ED: HR 114- 166 irregularly irregular, WBC 11.6, Troponin I <0.01, amylase/lipase negative, EKG - Afib with RVR, prolonged QTc, [address] depression V3-V6. Patient is being placed under observation on the telemetry floor for telemetry monitoring, rate control, and cardiology evaluation. Repeat Troponin and EKG in am.
[2018-02-24] MEDS ORDERED: LORAZEPAM1 M1 PO (03:00)
--- NOTE | 2018-02-24 07:05 | PN- Housestaff ---
Objective Last 24 Hrs of Vital Signs/I&O Vital Signs Date Time Temp Pulse Resp B/P B/P Pulse O2 O2 Flow FiO2 Mean Ox Delivery Rate 02/24 0624 83 106/57 02/24 0622 98.2 83 18 106/57 95 Nasal 2.0L Cannula 02/24 0340 100 113/60 02/24 0238 96 20 105/68 96 Nasal 2.0L Cannula 02/24 0136 106 125/79 96 Nasal 2.0L Cannula 02/24 0056 Room Air 02/24 0049 123 124/90 02/24 0039 97.7 114 18 124/90 02/24 0038 97.7 114 18 124/90 95 Room Air 02/24 0022 97.3 166 22 132/98 96 Room Air Intake & Output 02/24 0800 02/24 0000 02/23 1600 Intake Total 0 Output Total Balance 0 Intake, Oral 0 Patient 105.233 kg Weight Weight Reported by Patient Measurement Method Current Medications: Current Medications Sig/Cresencio Start time Last Medication Dose Route Stop Time Status Admin Acetaminophen 650 MG Q6P PRN 02/24 0430 AC PO Apixaban 5 MG BID 02/24 09 AC PO Aspirin 81 MG DAILY 02/24 09 AC PO Bupropion HCl 200 MG DAILY 02/24 09 AC PO Diltiazem HCl 60 MG Q6 02/24 06 AC 02/24 PO 0624 Diltiazem HCl 0 .STK-MED ONE 02/24 0035 DC IV Diltiazem HCl 0 .STK-MED ONE 02/24 003 DC IV Diltiazem HCl 125 MG Q8H 02/24 0030 AC 02/24 Sodium Chloride 100 ML IV 0040 Diltiazem HCl 60 MG STAT STA 02/24 0030 DC 02/24 PO 02/24 0031 0049 Gabapentin 300 MG TID 02/24 09 AC PO Lorazepam 0 .STK-MED ONE 02/24 0453 DC PO Lorazepam 1 MG BID PRN 02/24 0445 AC 02/24 PO 0457 Metoprolol Tartrate 0 .STK-MED ONE 02/24 0031 DC IV Metoprolol Tartrate 5 MG ONCE ONE 02/24 0030 DC 02/24 IV 02/24 0031 0039 Last 24 Hrs of Lab/Elias Results Last 24 Hrs of Labs/Mics: Laboratory Tests 02/24/18 0030: Anion Gap 14, Estimated GFR > 60, BUN/Creatinine Ratio 16.0, Glucose 115 H, Calcium 9.7, Total Bilirubin 0.9, Direct Bilirubin 0.3, AST 32, ALT 55, Alkaline Phosphatase 76, Troponin I < 0.01, Total Protein 7.6, Albumin 4.6, Amylase 47, Lipase 70, CBC w Diff NO MAN DIFF REQ, RBC 4.93, MCV 95.3 H, MCH 33.7 H, MCHC 35.4, RDW 12.8, MPV 8.0, Gran % 64.2, Lymphocytes % 22.9, Monocytes % 5.9, Eosinophils % 6.2 H, Basophils % 0.8, Absolute Granulocytes 7.5 H, Absolute Lymphocytes 2.7, Absolute Monocytes 0.7 H, Absolute Eosinophils 0.7, Absolute Basophils 0.1
[2018-02-24 08:20] VITALS: BP 101/63
--- NOTE | 2018-02-24 10:58 | Cons- Cardiology ---
General Information and HPI Consulting Request Date of Consult: 02/24/18 Requested By: Dwain Jerry MD History of Present Illness: This patient is a 62 year old male with history of dyslipidemia who was initially seen for chest discomfort and was discovered to have paroxysmal atrial fibrillation. He was started on Eliquis for stroke prophylaxis and Cardizem for rate control. He now returns to the ER with complaints of a mild chest tightness and was found to again be in atrial fibrillation with increased heart rate which has subsequently spontaneously converted back to a sinus rhythm. To review his past history he initially presented to the ER for evaluation of a single episode of chest discomfort. It was described as a moderate pressure sensation that was not radiating and lasted for about 30 minutes before resolving. He also noted mild shortness of breath and palpitations. The chest discomfort began while sitting in a car having an emotional discussion with a friend. No reported nasuea, vomiting or diaphoresis. Recently this patient has had episodes of diarrhea and is currently being worked up by GI for a possible problem with malabsorption. In the ER the patient was found to be in atrial fibrillation with rapid heart rate. While in [facility] the patient sponteneously converted back into a sinus rhythm and was started on Eliquis for stroke prophylaxis and Cardizem CD 120mg daily for control of his heart rate and blood pressure. His stress test showed an inferior fixed defect verses diaphragratic attenuation without ischemia. Cardiac workup also included an echocardiogram showing a normal EF of 60% with mild left ventricular hypertrophy , mild left atrial enlargement, mild mitral regurgitation, trace tricuspid and aortic regurgitation. The patient reports having similar symptoms and atrial fibrillation a few months ago in the setting of alcohol abuse. He is not been drinking since he was told that he has fatty liver disease. Allergies/Medications Allergies: Coded Allergies: NO KNOWN ALLERGIES (06/02/12) Home Med List: Apixaban (Eliquis) 5 MG TABLET 1 TAB PO BID A-FIB . Aspirin (Aspirin*) 81 MG TAB.CHEW 1 TAB PO DAILY HEART HEALTH . Bupropion HCl (Wellbutrin Sr) 200 MG TABLET.ER 1 TAB PO DAILY DEPRESSION ( Reported) Diltiazem Cd (Diltiazem ER) 120 MG CAP.ER.DEG 120 MG PO DAILY AFIB . Gabapentin 300 MG CAPSULE 1 CAP PO TID MENTAL HEATLH (Reported) Lorazepam 1 MG TABLET 1 TAB PO BID PRN ANXIETY (Reported) Review of Systems Review of Systems: A review of systems is unremarkable. 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 Psychosocial History Where Do You Live? Home Who Do You Live With? self Services at Home: None Smoking Status: Never Smoked ETOH Use: denies use (recently quit) Illicit Drug Use: denies illicit drug use Employment History Employment: Employed Exam & Diagnostic Data Vital Signs and I&O Vital Signs Date Time Temp Pulse Resp B/P B/P Pulse O2 O2 Flow FiO2 Mean Ox Delivery Rate 02/24 1000 52 18 96/61 99 Nasal 2.0L Cannula 02/24 0820 97.7 70 16 101/63 93 Nasal 2.0L Cannula 02/24 0757 97.7 70 16 101/63 93 Nasal 2.0L Cannula 02/24 0624 83 106/57 02/24 0622 98.2 83 18 106/57 95 Nasal 2.0L Cannula 02/24 0340 100 113/60 02/24 0238 96 20 105/68 96 Nasal 2.0L Cannula 02/24 0136 106 125/79 96 Nasal 2.0L Cannula 02/24 0056 Room Air 02/24 0049 123 124/90 02/24 0039 97.7 114 18 124/90 02/24 0038 97.7 114 18 124/90 95 Room Air 02/24 0022 97.3 166 22 132/98 96 Room Air Intake & Output 02/24 1600 02/24 0800 02/24 0000 02/23 1600 02/23 0800 02/23 0000 Intake Total 250 0 Output Total Balance 250 0 Intake, IV 250 Intake, Oral 0 Patient 232 lb 232 lb Weight Weight Reported by Patient Measurement Method Physical Exam: General: WD/overweight male in NAD; alert and oriented x 3 HEENT: NC/AT, PERRL, EOMI Neck: no JVD, no carotid bruit Heart: RRR w/o murmur Lungs: clear bilaterally ABdomen: soft, NT, +ve bowel sounds Extremities: no edema Assessment/Plan Assessment/Plan * This patient has paroxysmal atrial fibrillation with increased heart rate. At this point in time I would like to begin Multaq 400mg BID to try and maintain a sinus rhythm. Continue Eliquis for stroke prophylaxis and continue his usual dose of Cardizem which is 120mg daily. * We will consider a cardiac catheterization in the near future for unequivocal diagnosis although his recent stress test was negative for ischemia. Consult Acknowledgment - Thank you for your consult request.
--- NOTE | 2018-02-24 11:44 | PN- Att Addend ---
Attending Addendum Attending Brief Note Patient seen and examined. Resting comfortably not in any acute distress. Denies any chest pain shortness of breath or palpitations at present. He is currently converted back into normal sinus rhythm. Vital Signs Date Time Temp Pulse Resp B/P B/P Pulse O2 O2 Flow FiO2 Mean Ox Delivery Rate 02/24 1128 97.7 56 18 96/62 94 Room Air 02/24 1000 52 18 96/61 99 Nasal 2.0L Cannula 02/24 0820 97.7 70 16 101/63 93 Nasal 2.0L Cannula 02/24 0757 97.7 70 16 101/63 93 Nasal 2.0L Cannula 02/24 0624 83 106/57 / 0622 98.2 83 18 106/57 95 Nasal 2.0L Cannula 02/24 0340 100 113/60 02/24 0238 96 20 105/68 96 Nasal 2.0L Cannula 02/24 0136 106 125/79 96 Nasal 2.0L Cannula 02/24 0056 Room Air 02/24 0049 123 124/90 02/24 0039 97.7 114 18 124/90 02/24 0038 97.7 114 18 124/90 95 Room Air 02/24 0022 97.3 166 22 132/98 96 Room Air General appearance: Well-developed and not in any acute distress. HEENT: Anicteric, no pallor, pupils equal and reactive. Neck: Supple with no jugular venous distention. Heart: S1-S2 regular with no audible murmur. Lungs: Adequate and symmetric air entry bilaterally with no added sounds. Abdomen: Nondistended with normal bowel sounds. Soft, nontender with no palpable masses. Extremities: No pedal edema. No cyanosis. Skin: Intact Problems: 1. Paroxysmal atrial fibrillation 2. Chest pain 3. Dyslipidemia 4. Anxiety disorder Plan: -Patient is currently again in normal sinus rhythm. Due to his repeated conversations back and forth he has been started on Multaq by the cardiology service to maintain normal sinus rhythm. -He has ruled out for ACS with negative cardiac enzymes and no ischemic changes on his EKG however due to his complaint of chest discomfort the cardiology service is recommending elective cardiac catheterization. -If patient remains stable overnight or more tach he may be discharged home on Multaq to maintain sinus rhythm. We will continue Cardizem. He will continue Eliquis for anticoagulation. Follow-up with cardiology service for timing of cardiac catheterization. -Monitor blood pressure closely as his blood pressure is currently in the high 90s.
--- NOTE | 2018-02-24 13:50 | Patient Discharge Instructions ---
Discharge Instructions General Discharge Information You were seen/treated for: Atrial fibrillation with rapid ventricular response Special Instructions: Please go to your nearest emergency department with new onset chest pain, shortness of breath, dizziness, palpitations or rapid heart rate. Diet Continue normal diet: Yes Recommended Diet: Regular Activity Full Activity/No Limits: No Activity Self Limited: Yes Acute Coronary Syndrome Inclusion Criteria At DC or during hospital stay patient has or had the following: ACS DIAGNOSIS No Discharge Core Measures Meds if any: Prescribed or Continued at Discharge Meds if any: NOT Prescribed or Continued at Discharge Congestive Heart Failure Inclusion Criteria At DC or during hospital stay patient has or had the following: CHF DIAGNOSIS No Discharge Core Measures Meds if any: Prescribed or Continued at Discharge Meds if any: NOT Prescribed or Continued at Discharge Cerebrovascular accident Inclusion Criteria At DC or during hospital stay patient has or had the following: CVA/TIA Diagnosis No Discharge Core Measures Meds if any: Prescribed or Continued at Discharge Meds if any: NOT Prescribed or Continued at Discharge Venous thromboembolism Inclusion Criteria VTE Diagnosis No VTE Type NONE VTE Confirmed by (Test) NONE Discharge Core Measures - Per Current guidelines, there needs to be overlap - treatment for the first 5 days of Warfarin therapy. - If discharged on Warfarin prior to 5 days of - overlap therapy, the patient will need to be - assessed for post discharge needs including - *Post discharge parental anticoagulation - *Warfarin and/or parental anticoagulation education - *Follow up date to check INR post discharge At least 5 days overlap therapy as Inpatient No Meds if any: Prescribed or Continued at Discharge Note: Overlap Therapy is Warfarin and Anticoagulant Meds if any: NOT Prescribed or Continued at Discharge
[2018-02-24] MEDS ORDERED: MULTAQ400 M1 PO (13:53)
[2018-02-24 23:23] VITALS: BP 96/62
[2018-02-25 06:16] VITALS: BP 98/68
--- NOTE | 2018-02-25 06:49 | PN- Housestaff ---
Subjective Follow-up For: Atrial fibrillation Tele-Events Since Last Visit: Normal sinus rhythm overnight Subjective: Patient seen resting comfortably in the bed, overnight he reports no acute events. He tolerated the Dronedarone well last night and continues in sinus rhythm. He denies dizziness, light-headedness, shortness of breath, and reports that his chest pain has not returned since yesterday. Review of Systems Constitutional: Denies: chills, fever, weakness. Objective Last 24 Hrs of Vital Signs/I&O Vital Signs Date Time Temp Pulse Resp B/P B/P Pulse O2 O2 Flow FiO2 Mean Ox Delivery Rate 02/25 0616 97.6 84 18 98/68 95 02/24 2323 98.1 75 18 96/62 96 02/24 2042 87 112/66 02/24 1403 98.4 69 18 117/79 99 02/24 1128 97.7 56 18 96/62 94 Room Air 02/24 1000 52 18 96/61 99 Nasal 2.0L Cannula 02/24 0820 97.7 70 16 101/63 93 Nasal 2.0L Cannula 02/24 0757 97.7 70 16 101/63 93 Nasal 2.0L Cannula Intake & Output 02/25 0800 02/25 0000 02/24 1600 Intake Total 240 480 250 Output Total Balance 240 480 250 Intake, IV 250 Intake, Oral 240 480 Patient 105.233 kg Weight Physical Exam General Appearance: Alert, Oriented X3, Cooperative, No Acute Distress HEENT: Atraumatic, PERRLA, EOMI, Mucous Membr. moist/pink Neck: Supple, No JVD, No thryomegaly, +2 Carotid Pulse wo Bruit Cardiovascular: Regular Rate, Normal S1, Normal S2, No Murmurs Lungs: Clear to Auscultation, Normal Air Movement Abdomen: Normal Bowel Sounds, Soft, No Tenderness, No Hepatospenomegaly Current Medications: Current Medications Sig/Cresencio Start time Last Medication Dose Route Stop Time Status Admin Acetaminophen 650 MG Q6P PRN 02/24 0430 AC PO Apixaban 5 MG BID 02/24 900 AC 02/24 PO 204 Aspirin 81 MG DAILY 02/24 900 AC 02/24 PO 0852 Bupropion HCl 200 MG DAILY 02/24 900 AC 02/24 PO 851 Diltiazem HCl 120 MG DAILY 02/25 09 DC PO Diltiazem HCl 120 MG DAILY 02/25 0900 AC PO Diltiazem HCl 125 MG Q12H 02/24 1000 DC Sodium Chloride 100 ML IV Diltiazem HCl 60 MG Q6 02/24 0600 DC 02/24 PO 0624 Diltiazem HCl 125 MG Q8H 02/24 0030 DC 02/24 Sodium Chloride 100 ML IV 02/24 0959 0914 Dronedarone 400 MG BID 02/24 2100 AC 02/24 PO 204 Gabapentin 300 MG TID 02/24 0900 AC 02/24 PO 204 Lorazepam 1 MG BID PRN 02/24 0445 AC 02/24 PO 1822 Last 24 Hrs of Lab/Elias Results Last 24 Hrs of Labs/Mics: Laboratory Tests 02/24/1830: Troponin I < 0.01 Assessment/Plan Assessment: 62 year old male with history of paroxysmal atrial fibrillation on Eliquis and Cardizem, and bipolar disorder presented to [facility] with tachycardia in atrial fibrillation and chest pain with negative troponins. Patient received Dronedarone overnight and tolerated it well, remains in sinus rhythm. His blood pressure has been on the lower end of normal at 98/68 this morning. He has been around this range, with systolics from 100's to 120's over his current and previous hospital visit. Problems: 1. Atrial fibrillation 2. Bipolar disorder Plan: * Continue Dronedarone 400mg BID * Continue Eliquis 5mg BID * Continue Lorazepam * Discussed with cardiology elective cardiac catheterization as outpatient *
--- NOTE | 2018-02-25 08:32 | Discharge Summary ---
Visit Information Visit Dates Admission Date: 02/24/18 Hospital Course Course Attending Physician: Dwain Jerry MD Primary Care Physician: Sunny Berger MD [facility] Course: Mr. Vazquez is a 62-year-old gentleman with a past medical history significant for atrial fibrillation, hyperlipidemia, gout, bipolar disease, and anxiety who has come to the ER with chief complaint of chest tightness that he had all day. On the day of admission he has started his stay late, and he had a coffee which was not decaffeinated (this is the first time that he had regular coffee after he was discharged from the hospital). Then he had gone for work with his friend for 30 minutes about 1-1/2 miles. Hold during the day he had a tightness in his chest. After tenure he went to bed at nighttime, while he was watching TV he is started feeling palpitations. He checked his heart rate on his smart watch, it was about 110. Then the watch was not able to show anything and reported atrial fibrillation when he downloaded the data from the bruno. He came to ER for evaluation of his tachycardia and chest tightness. The first time that he had a thrill in fibrillation was seen last March after he was drinking, the next time was 2.5 months ago when he failed palpitations; he reports that it always happens at night. He does not recall whether he has taken his morning medication on the day of admission or not, he is thinking he might have taken them but he is not sure. 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 Medications at Discharge Discharge Medications: Continue taking these medications: Bupropion HCl (Wellbutrin Sr) 200 MG TABLET.ER 1 Tablet ORAL DAILY Comments: Last Taken: 02/25/18 Time: 8:00 AM Gabapentin (Gabapentin) 300 MG CAPSULE 1 Capsule ORAL THREE TIMES DAILY Comments: Last Taken: 02/25/18 Time: 8:00 AM Aspirin (Aspirin*) 81 MG TAB.CHEW 1 Tablet ORAL DAILY Qty = 30 Instructions: . Comments: Last Taken: 02/25/18 Time: 8:00 AM Diltiazem Cd (Diltiazem ER) 120 MG CAP.ER.DEG 120 Milligram ORAL DAILY Qty = 30 Instructions: . Comments: Last Taken: 02/25/18 Time: 8:00 AM Apixaban (Eliquis) 5 MG TABLET 1 Tablet ORAL TWICE DAILY Qty = 30 Instructions: . Comments: Last Taken: 02/25/18 Time: 8:00 AM Lorazepam (Lorazepam) 1 MG TABLET 1 Tablet ORAL TWICE DAILY as needed for ANXIETY Comments: Last Taken: 02/25/18 Time: 9:30 AM Start taking the following new medications: Dronedarone HCl (Multaq) 400 MG TABLET 1 Tablet ORAL TWICE DAILY Qty = 60 No Refills Instructions: .400MG BID Comments: Last Taken: 02/25/18 Time: 8:00 AM Copies To: Elaine JACKSON PHD,Braulio Edwards; Celine JACKSON,Sunny Edwards Attending MD Review Statement Documenting Attending: Dwain Jerry MD Other Findings: Discharged in stable condition.
--- NOTE | 2018-02-25 10:46 | PN-Observation ---
Jos eLuis Mota 02/25/18 1044: Observation Note Observation Note _ I have personally examined PRESTON FORDE. him disposition is uncertain at this time. Before a determination can be made, he requires continued observation for the following reasons [CHEST PAIN]. Assessment/Plan Medical Assessment: 62 year old male with history of paroxysmal atrial fibrillation on Eliquis and Cardizem, and bipolar disorder presented to [facility] with tachycardia in atrial fibrillation and chest pain with negative troponins. Patient received Dronedarone overnight and tolerated it well, remains in sinus rhythm. His blood pressure has been on the lower end of normal at 98/68 this morning. He has been around this range, with systolics from 100's to 120's over his current and previous hospital visit. Problems: 1. Atrial fibrillation 2. Bipolar disorder Problem List: 1. Atrial fibrillation with rapid ventricular response 2. Chest pain 3. Anxiety Plan: * Continue Dronedarone 400mg BID * Continue Eliquis 5mg BID * Continue Lorazepam * Discussed with cardiology elective cardiac catheterization as outpatient Subjective Follow-up For: Chest pain Atrial fibrillation Tele-Events Since Last Visit: Pateint in normal sinus rhythm overnight Subjective: Patient seen resting comfortably in the bed, overnight he reports no acute events. He tolerated the Dronedarone well last night and continues in sinus rhythm. He denies dizziness, light-headedness, shortness of breath, and reports that his chest pain has not returned since yesterday. Review of Systems Constitutional: Denies: chills, fever, malaise, weakness. Objective Last 24 Hrs of Vital Signs/I&O Vital Signs Date Time Temp Pulse Resp B/P B/P Pulse O2 O2 Flow FiO2 Mean Ox Delivery Rate 02/25 0804 68 100/60 02/25 0800 95 Room Air 02/25 0616 97.6 84 18 98/68 95 02/24 2323 98.1 75 18 96/62 96 02/24 2042 87 112/66 02/24 1403 98.4 69 18 117/79 99 02/24 1128 97.7 56 18 96/62 94 Room Air Intake & Output 02/25 1600 02/25 0800 02/25 0000 Intake Total 240 480 Output Total Balance 240 480 Intake, Oral 240 480 Physical Exam General Appearance: Alert, Oriented X3, Cooperative, No Acute Distress HEENT: Atraumatic, PERRLA, EOMI, Mucous Membr. moist/pink Neck: Supple, No JVD, No thryomegaly Cardiovascular: Regular Rate, Normal S1, Normal S2, No Murmurs Lungs: Clear to Auscultation, Normal Air Movement Abdomen: Normal Bowel Sounds, Soft, No Tenderness Neurological: Normal Gait, Normal Speech, Strength at 5/5 X4 Ext Extremities: No Clubbing, No Cyanosis Current Medications: Current Medications Sig/Cresencio Start time Last Medication Dose Route Stop Time Status Admin Acetaminophen 650 MG Q6P PRN 02/24 0430 AC PO Apixaban 5 MG BID 02/24 09 AC 02/25 PO 0804 Aspirin 81 MG DAILY 02/24 09 AC 02/25 PO 0804 Bupropion HCl 200 MG DAILY 02/24 900 AC 02/25 PO 0804 Diltiazem HCl 120 MG DAILY 02/25 09 DC PO Diltiazem HCl 120 MG DAILY 02/25 0900 AC 02/25 PO 0804 Diltiazem HCl 60 MG Q6 02/24 0600 DC 02/24 PO 0624 Dronedarone 400 MG BID 02/24 2100 AC 02/25 PO 0804 Gabapentin 300 MG TID 02/24 09 AC 02/25 PO 0804 Lorazepam 1 MG BID PRN 02/24 0445 AC 02/25 PO 0926 Rosalino JACKSON,Dwain 02/25/18 1059: Observation Note Observation Note _ I have personally examined PRESTON FORDE. him disposition is uncertain at this time. Before a determination can be made, he requires continued observation for the following reasons []. Patient seen and examined. Complained of mild anxiety. Complained of mild left -sided chest discomfort however attributes this to his anxiety. Denies shortness of breath. He is hemodynamically stable. He remains in normal sinus rhythm. His remained clear to auscultation. No peripheral edema. Continue Multaq to maintain normal sinus rhythm. Continue diltiazem. Continue antibiotic treatment with Eliquis. He is medically stable to be discharged today with recommendations to follow-up with the cardiology service and outpatient for further ischemic workup with possibly a cardiac catheterization.
[2018-02-25] MEDS ORDERED: MULTAQ400 M1 PO (11:08)
[2018-02-25 14:24] VITALS: BP 118/76
--- NOTE | 2018-02-25 16:01 | PN- Cardiology ---
Subjective Subjective: * Patient reports some anxiety but otherwise is doing well without chest discomfort, shortness of breath, lightheadedness or palpitations. * sinus rhythm * Mildly increased WBC count noted Objective Vital Signs and I&Os Vital Signs Date Time Temp Pulse Resp B/P B/P Pulse O2 O2 Flow FiO2 Mean Ox Delivery Rate 02/25 1424 98.4 85 20 118/76 95 Room Air 02/25 0804 68 100/60 02/25 0800 95 Room Air 02/25 0616 97.6 84 18 98/68 95 02/24 2323 98.1 75 18 96/62 96 02/24 2042 87 112/66 Intake & Output 02/25 1600 02/25 0800 02/25 0000 02/24 1600 02/24 0800 02/24 0000 Intake Total 880 240 480 250 0 Output Total Balance 880 240 480 250 0 Intake, IV 250 Intake, Oral 880 240 480 0 Patient 232 lb 232 lb Weight Weight Reported by Patient Measurement Method Physical Exam: General: WD/overweight male in NAD; alert and oriented x 3 HEENT: NC/AT, PERRL, EOMI Neck: no JVD, no carotid bruit Heart: RRR w/o murmur Lungs: clear bilaterally ABdomen: soft, NT, +ve bowel sounds Extremities: no edema Assessment/Plan Assessment/Plan * This patient has paroxysmal atrial fibrillation with increased heart rate. Continue Multaq 400mg BID to try and maintain a sinus rhythm. Continue Eliquis for stroke prophylaxis and continue his usual dose of Cardizem which is 120mg daily. * We will consider a cardiac catheterization as an outpatient in the near future for unequivocal diagnosis although his recent stress test was negative for ischemia. * This patient is stable for discharge from a cardiac standpoint with follow up recommended in the office in one week. Continue telemetry? No
== END 2018-02-25 17:25 ==
LOC: DELPENDDIS → ERH 00:20 → ERHI 01:39 → ERH 01:39 → EDBEDREQ 01:46 → ERHI 04:47 → ENRESERV 14:05 → ENTRNSPT 14:34 → EDTRNSPT 15:16 → EDTRNSPTSTS 15:16 → 1NO 15:25 → CMPTRNSPT 15:36 → ENPENDDIS 02-25 10:40 → 1NO 02-25 17:25
PROVIDERS: Pediatrics
DX: I48.0 Paroxysmal atrial fibrillation (principal); Z79.01 Long term (current) use of anticoagulants; E78.5 Hyperlipidemia, unspecified; M10.9 Gout, unspecified; F31.9 Bipolar disorder, unspecified; F41.9 Anxiety disorder, unspecified; Z91.14 Patient's other noncompliance with medication regimen; Z79.82 Long term (current) use of aspirin; D72.829 Elevated white blood cell count, unspecified; E66.9 Obesity, unspecified
CPT/HCPCS: 71045; 93005; 93010; 96365; 96366; 96375; 99291; G0378; J3490

== ENCOUNTER 2018-03-16 11:42 | Inpatient (IN) | payer OTHER ==
[~2018-03-16] VITALS: Ht 177.8 cm; Wt 150.6 kg
[~2018-03-16 11:42] MED LIST changes: +LORAZEPAM1 M1 PO; +MULTAQ400 M1 PO
--- NOTE | 2018-03-16 12:03 | ED CARDIAC/CP/PALPITATIONS ---
History of Present Illness General Chief Complaint: Palpitations Stated Complaint: ? AFIB/PALPATATIONS Source: patient Exam Limitations: no limitations Vital Signs & Intake/Output Vital Signs & Intake/Output Vital Signs Date Time Temp Pulse Resp B/P B/P Pulse O2 O2 Flow FiO2 Mean Ox Delivery Rate 03/17 0900 106/60 03/17 0734 97.1 66 18 94/62 97 Room Air 03/16 2234 88 92/60 03/16 2218 98.5 76 23 88/60 97 03/16 1655 98 03/16 1502 97.5 86 18 120/78 96 Room Air 03/16 1409 75 18 109/75 98 Room Air 03/16 1324 138 03/16 1229 109 03/16 1226 128 111/61 03/16 1214 Room Air 03/16 1213 124 18 117/74 99 Room Air 03/16 1211 174 18 03/16 1148 97.0 86 18 120/86 97 Room Air ED Intake and Output 03/17 0000 03/16 1200 Intake Total 120 Output Total 0 Balance 120 Intake, Oral 120 Output, Urine 0 Patient 104.78 kg 104.326 kg Weight Weight Bed scale Measurement Method Allergies Coded Allergies: NO KNOWN ALLERGIES (06/02/12) Reconcile Medications Apixaban (Eliquis) 5 MG TABLET 1 TAB PO BID A-FIB . Aspirin (Aspirin*) 81 MG TAB.CHEW 1 TAB PO DAILY HEART HEALTH . Bupropion HCl (Wellbutrin Sr) 200 MG TABLET.ER 1 TAB PO DAILY DEPRESSION ( Reported) Diltiazem Cd (Diltiazem ER) 120 MG CAP.ER.DEG 120 MG PO DAILY AFIB . Dronedarone HCl (Multaq) 400 MG TABLET 1 TAB PO BID HEART .400MG BID Gabapentin 300 MG CAPSULE 1 CAP PO TID MENTAL HEATLH (Reported) Lorazepam 1 MG TABLET 1 TAB PO BID PRN ANXIETY (Reported) Triage Note: PT TO TRIAGE WITH COMPLAINTS THAT HE FEELS LIKE HIS HEART IS RACING, PT HAS HISTORY OF AFIB THAT HE TAKES ELIQUIST FOR, AFIB AT THIS TIME HR 144, DENIES CP AND COMPLAINS OF SLIGHT SOB. ADMITTED 2 WEEKS AGO FOR THE SAME Triage Nurses Notes Reviewed? yes HPI: 62yo male with PMH of afib presenting with palpitations and tachycardia. Pt woke up in normal state of health and was found to have a fast pulse to 106 by his fitbit. Pt felt a little chest tightness and mild heart palpitations, but denied any pain, headaches, fatigue, dyspnea. Pt took Ativan, rested, and ate breakfast without any relief. Pt has been compliant this his medications. Denies any new stressers. Chest discomfort is mid-sternal, non-radiating, 6/10, not associated with SOB, diaphoresis, lightheadedness. No drug use. No recent medication changes or supplements. Past History Travel History Traveled to [place] past 21 day No Medical History Any Pertinent Medical History? 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 Hx Contributory? No Review of Systems Review of Systems Constitutional: Reports: no symptoms. EENTM: Reports: no symptoms. Respiratory: Reports: no symptoms. Cardiovascular: Reports: see HPI. GI: Reports: no symptoms. Genitourinary: Reports: no symptoms. Musculoskeletal: Reports: no symptoms. Skin: Reports: no symptoms. Neurological/Psychological: Reports: no symptoms. Hematologic/Endocrine: Reports: no symptoms. Immunologic/Allergic: Reports: no symptoms. All Other Systems: Reviewed and Negative Physical Exam Physical Exam General Appearance: well developed/nourished, no apparent distress, alert, awake Head: atraumatic, normal appearance Eyes: Bilateral: normal appearance, PERRL, EOMI. Ears, Nose, Throat: normal pharynx, normal ENT inspection, hearing grossly normal Neck: normal inspection, supple, full range of motion Respiratory: normal breath sounds, chest non-tender, no respiratory distress, lungs clear Cardiovascular: tachycardia, irregularly irregular Gastrointestinal: soft, non-tender Back: normal inspection, normal range of motion, no vertebral tenderness Extremities: normal inspection, normal capillary refill, normal range of motion Neurologic/Psych: no motor/sensory deficits, awake, alert, oriented x 3, normal gait, normal mood/affect Skin: intact, normal color, warm/dry Lymphatic: no anterior cervical rafi Core Measures ACS in differential dx? No CVA/TIA Diagnosis No Sepsis Present: No Sepsis Focused Exam Completed? No Progress Differential Diagnosis: AMI, atrial fibrillation, cholecystitis, myocarditis, pancreatitis, pericarditis, pulmonary embolism, PVCs/PACs, unstable angina, V- fib/V-Tach Plan of Care: Orders Procedure Date/time Status Change service to 03/17 0717 Active CBC WITHOUT DIFFERENTIAL 03/17 0600 Complete BASIC ELECTROLYTES PLUS BUN&CR 03/17 0600 Complete Heart Healthy Diet 03/16 D Active TROPONIN LEVEL 03/16 2359 Complete EKG 03/16 2359 Active TROPONIN LEVEL 03/16 1800 Complete EKG 03/16 1800 Active Pathway - chart 03/16 1519 Active Pathway - chart 03/16 1454 Active House Staff 03/16 1454 Active Weight 03/16 1428 Active Vital Signs 03/16 1428 Active Teach/Educate 03/16 1428 Active Pain Treatment and Response 03/16 1428 Active Nutritional Intake, Monitor 03/16 1428 Active Isolation 03/16 1428 Active Intake & Output 03/16 1428 Active Patient Care Conference 03/16 1428 Active Activity/Ambulation 03/16 1428 Active EKG 03/16 1410 Active Patient Data 03/16 1324 Active ED Holding Orders 03/16 1316 Active Admit to inpatient 03/16 1316 Active Vital Signs 03/16 1316 Active Code Status 03/16 1316 Active Intake & Output 03/16 1229 Active TSH REFLEX 03/16 1151 Complete TROPONIN LEVEL 03/16 1151 Complete PARTIAL THROMBOPLASTIN TIME 03/16 1151 Complete PROTHROMBIN TIME 03/16 1151 Complete MAGNESIUM 03/16 1151 Complete D-DIMER 03/16 1151 Complete COMPREHENSIVE METABOLIC PANEL 03/16 1151 Complete CBC WITHOUT DIFFERENTIAL 03/16 1151 Complete VTE Mechanical Prophylaxis 03/16 UNK Active Current Medications Sig/Cresencio Start time Last Medication Dose Stop Time Status Admin Diltiazem HCl 120 MG DAILY 03/17 0900 AC 03/17 (Cardizem CD) 0859 Omeprazole 40 MG DAILY AC 03/17 0700 AC 03/17 (Prilosec) 0554 Apixaban 5 MG BID 03/16 2100 AC 03/17 (Eliquis) 0859 Dronedarone 400 MG BID 03/16 2100 AC 03/17 (Multaq) 0900 Gabapentin 300 MG TID 03/16 2100 AC 03/17 (Neurontin) 0859 Acetaminophen 650 MG Q6P PRN 03/16 153 AC (Tylenol) Acetaminophen 1,000 MG Q6P PRN 03/16 1530 AC (Ofirmev) Hydromorphone HCl 1 MG Q6P PRN 03/16 153 AC (Dilaudid) Lorazepam 1 MG BID PRN 03/16 1500 AC 03/16 (Ativan) 2032 Laboratory Tests 03/17/18 0641: Anion Gap 9, Estimated GFR > 60, BUN/Creatinine Ratio 17.8, CBC w Diff NO MAN DIFF REQ, RBC 4.63 L, MCV 97.6 H, MCH 33.7 H, MCHC 34.5, RDW 13.1, MPV 8.4, Gran % 63.2, Lymphocytes % 23.8, Monocytes % 5.5, Eosinophils % 6.6 H, Basophils % 0.9, Absolute Granulocytes 5.0, Absolute Lymphocytes 1.9, Absolute Monocytes 0.4, Absolute Eosinophils 0.5, Absolute Basophils 0.1 03/17/18 0010: Troponin I < 0.01 03/16/18 1755: Troponin I < 0.01 03/16/18 1204: Anion Gap 9, Estimated GFR > 60, BUN/Creatinine Ratio 13.0, Glucose 115 H, Calcium 9.8, Magnesium 2.2, Total Bilirubin 0.8, AST 28, ALT 51, Alkaline Phosphatase 73, Troponin I < 0.01, Total Protein 7.5, Albumin 4.5, Globulin 3.0, Albumin/Globulin Ratio 1.5, TSH &T3 &Free T4 Intrp 3.070, PT 14.2 H, INR 1.30 H, APTT 27, D-Dimer High Sensitivty < 200, CBC w Diff NO MAN DIFF REQ, RBC 5.17, MCV 95.9 H, MCH 33.7 H, MCHC 35.1, RDW 13.1, MPV 8.0, Gran % 67.0, Lymphocytes % 21.4, Monocytes % 5.9, Eosinophils % 5.2 H, Basophils % 0.5, Absolute Granulocytes 6.3, Absolute Lymphocytes 2.0, Absolute Monocytes 0.6, Absolute Eosinophils 0.5, Absolute Basophils 0 Diagnostic Imaging: Viewed by Me: Radiology Read. Discussed w/RAD: Radiology Read. Radiology Impression: ATIENT: PRESTON FORDE PRESENT AGE: 62 PATIENT ACCOUNT NO: [id number] : 57 LOCATION: [facility] ORDERING PHYSICIAN: Mariano DUKE SERVICE DATE: 03/16/18 EXAM TYPE: RAD - XRY- PORTABLE CHEST XRAY EXAMINATION: XR PORTABLE CHEST CLINICAL INFORMATION: Chest pain. COMPARISON: Chest done on 02/24/2018. TECHNIQUE: Portable frontal view of the chest was obtained. FINDINGS: Mild hyperinflated lung is present bilaterally , unchanged. Both lungs are clear. Cardiomediastinal silhouette is within normal limit. There is no pleural effusion or pneumothorax present. The visualized upper abdomen is unremarkable. Overall, no significant change since 02/24/2018. IMPRESSION: No acute cardiopulmonary disease. DICTATED BY: George Leal MD DATE/TIME DICTATED:03/16/181224 SALES OFFICE MANAGER:ARIELA DATE/TIME TRANSCRIBED:03/16/181224 CONFIDENTIAL, DO NOT COPY WITHOUT APPROPRIATE AUTHORIZATION. <Electronically signed in Other Vendor System> SIGNED BY: George Leal MD 03/16/18 1230 Initial ED EKG: AFIB, ST depressions in V4 and V5 Departure Departure Disposition: STILL A PATIENT Condition: Stable Clinical Impression Primary Impression: Atrial fibrillation with rapid ventricular response Secondary Impressions: Palpitations, ST segment depression Referrals: Sunny Berger MD (PCP/Family) Departure Forms: Customer Survey General Discharge Information Admission Note Spoke With: Fritz Coombs MD Documentation of Exam: Documentation of any treatments & extenuating circumstances including Concerns Regarding Discharge (functional status, medication knowledge or non-compliance, living conditions, etc.) that warrant an admission rather than observation: rapid atrial fibrillation with RVR with no improvement after multiple rounds of IV Cardizem, with ST depressions on EKG, will require admission to medicine for Cardizem drip, telemetry monitoring, cardiology consult, potential cardiac catheterization or PJ/cardioversion. Critical Care Note Critical Care Note Critical Care Time: non-applicable
[2018-03-16 12:13] LABS: ABSOLUTE BASOPHIL COUNT 0 /CUMM (0.0-0.2); ABSOLUTE EOSINOPHIL COUNT 0.5 /CUMM (0.0-0.7); ABSOLUTE GRANULOCYTE CT 6.3 /CUMM (1.4-6.5); ABSOLUTE MONOCYTE COUNT 0.6 /CUMM (0.10-0.60); BASOPHIL % 0.5 % (0.0-2.0); EOSINOPHIL % 5.2 % (0-5); HEMATOCRIT 49.6 % (42-52); MEAN CORPUSCULAR HGB 33.7 PG (27.0-31.0); MEAN CORPUSCULAR HGB CONC 35.1 G/DL (33.0-37.0); MEAN CORPUSCULAR VOLUME 95.9 FL (80.0-94.0); PLATELET COUNT 244 /CUMM (130-400); RBC DISTRIBUTION WIDTH 13.1 % (11.5-14.5); RED BLOOD CELL CT 5.17 /CUMM (4.70-6.10); WHITE BLOOD CELL COUNT 9.4 /CUMM (4.8-10.8)
--- NOTE | 2018-03-16 12:30 | RADIOLOGY REPORT ---
EXAMINATION: XR PORTABLE CHEST CLINICAL INFORMATION: Chest pain. COMPARISON: Chest done on 02/24/2018. TECHNIQUE: Portable frontal view of the chest was obtained. FINDINGS: Mild hyperinflated lung is present bilaterally, unchanged. Both lungs are clear. Cardiomediastinal silhouette is within normal limit. There is no pleural effusion or pneumothorax present. The visualized upper abdomen is unremarkable. Overall, no significant change since 02/24/2018. IMPRESSION: No acute cardiopulmonary disease.
[2018-03-16 12:32] LABS: PT 14.2 SEC (9.4-12.5); PTT 27 SEC (25-37)
--- NOTE | 2018-03-16 13:42 | History & Physical ---
Tony Quezada 03/16/18 1341: General Information and HPI MD Statement: I have seen and personally examined PRESTON FORDE and documented this H&P. The patient is a 62 year old M who presented with a patient stated chief complaint of [Palpitation and chest discomfort]. Source of Information: patient, old records Exam Limitations: no limitations History of Present Illness: This is a this is 62 year old man with past medical history of atrial fibrillation on eliquis, cardizem CD 120MG, Multaq 400MG, hyperlipidemia, bipolar disoder, anxiety, and obesity who is presenting for the third time in five weeks with two previous encounters at [facility] due to AFIB. Patient was admitted to [facility] from 02/03/18 to 02/05/18 for evaluation of palpitations with epigastric discomfort where he was found to be in new onset atrial fibrillation for which he was started on eliquis and cardizem. The patient was seen again on January and put on observation for one night for the same AFIB during this visit the patient had not taken his medication. He reports to start experiencing symptoms this morning feeling like is having a funny heartbeats of which he considered to be a atrial fibrillation he checked his heart rate through his Fitbit and was around 150s patient used his I phone up which showed that he is having arrhythmia but the arrhythmias cannot be classified. He reports to experience mild chest discomfort located in the center part of the chest which feels like indigestion/acid reflux but denies of overt chest pain, pain in the shoulder or jaws. She denies any shortness of breath, dizziness or lightheadedness. Has no nausea or vomiting. The patient reports that he has been taking all his medication as instructed the only discrepancy in his medication is the fact that he took his night medication late yesterday because he was out with his arik around midnight in instead of the usual 8 PM. The patient reports that he has not taken he is antiacid medication for the past 2 days but admittedly strongly denies not taking his heart medication as prescribed. He denies any urinary symptoms, abdominal pain, cough, or weakness. Patient follows with Dr. 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 Allergies/Medications Allergies: Coded Allergies: NO KNOWN ALLERGIES (06/02/12) Home Med list Apixaban (Eliquis) 5 MG TABLET 1 TAB PO BID A-FIB . Aspirin (Aspirin*) 81 MG TAB.CHEW 1 TAB PO DAILY HEART HEALTH . Bupropion HCl (Wellbutrin Sr) 200 MG TABLET.ER 1 TAB PO DAILY DEPRESSION ( Reported) Diltiazem Cd (Diltiazem ER) 120 MG CAP.ER.DEG 120 MG PO DAILY AFIB . 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 Psychosocial History Who Do You Live With? self Services at Home: None ETOH Use: denies use Illicit Drug Use: denies illicit drug use Review of Systems Review of Systems Constitutional: Denies: chills, fever. Cardiovascular: Reports: palpitations. Denies: chest pain. Respiratory: Denies: cough, short of breath. GI: Denies: abdominal pain, nausea, vomiting. Genitourinary: Denies: no symptoms. Musculoskeletal: Denies: no symptoms. Skin: Denies: no symptoms. All Other Systems: Reviewed and Negative Exam & Diagnostic Data Last 24 Hrs of Vital Signs/I&O Vital Signs Date Time Temp Pulse Resp B/P B/P Pulse O2 O2 Flow FiO2 Mean Ox Delivery Rate 03/16 1409 75 18 109/75 98 Room Air 03/16 1324 138 03/16 1229 109 03/16 1226 128 111/61 03/16 1214 Room Air 03/16 1213 124 18 117/74 99 Room Air 03/16 1211 174 18 03/16 1148 97.0 86 18 120/86 97 Room Air Intake & Output 03/16 1600 03/16 0800 08/19 0000 Intake Total Output Total Balance Patient 230 lb Weight Physical Exam General Appearance Alert, Oriented X3, Cooperative, No Acute Distress Skin No Rashes, No Breakdown Skin Temp/Moisture Exam: Warm/Dry Sepsis Skin Exam (color): Normal for Ethnicity HEENT Atraumatic, EOMI, Mucous Membr. moist/pink Neck Supple, No JVD Cardiovascular Regular Rate, Normal S1, Normal S2, No Murmurs Lungs Clear to Auscultation, Normal Air Movement Abdomen Normal Bowel Sounds, Soft, No Tenderness, obese Neurological Normal Speech, Strength at 5/5 X4 Ext, Normal Tone Extremities No Clubbing, No Cyanosis, No Edema Vascular Normal Pulses Last 24 Hrs of Labs/Elias: Laboratory Tests 03/16/18 1204: Anion Gap 9, Estimated GFR > 60, BUN/Creatinine Ratio 13.0, Glucose 115 H, Calcium 9.8, Magnesium 2.2, Total Bilirubin 0.8, AST 28, ALT 51, Alkaline Phosphatase 73, Troponin I < 0.01, Total Protein 7.5, Albumin 4.5, Globulin 3.0, Albumin/Globulin Ratio 1.5, TSH &T3 &Free T4 Intrp 3.070, PT 14.2 H, INR 1.30 H, APTT 27, D-Dimer High Sensitivty < 200, CBC w Diff NO MAN DIFF REQ, RBC 5.17, MCV 95.9 H, MCH 33.7 H, MCHC 35.1, RDW 13.1, MPV 8.0, Gran % 67.0, Lymphocytes % 21.4, Monocytes % 5.9, Eosinophils % 5.2 H, Basophils % 0.5, Absolute Granulocytes 6.3, Absolute Lymphocytes 2.0, Absolute Monocytes 0.6, Absolute Eosinophils 0.5, Absolute Basophils 0 Diagnostic Data EKG Results AFIB 144 BPM, Normal axis, ST depression V2-V5 unchanged from previous EKG. CXR Results No acute cardiopulmonary disease. Assessment/Plan Assessment: This is a 62 years old man with past medical history of hyperlipidemia, bipolar disorder, A. fib on Eliquis and Multaq with Cardizem who is presenting with 1 day history of palpitation and a funny chest feeling On his chest. Upon presentation found to be in atrial fibrillation with heart rate as high as 174. While patient being evaluated in the ER converted to sinus rhythm but prior to that received 2 doses of 10 mg IV Cardizem push. Problem list A. fib with RVR Bipolar disorder Plan Admit to telemetry floor Patient on continuous telemetry monitoring Continue patient on his Cardizem CD 120MG daily, Continue Multaq 400MG BID Patient not started on Cardizem drip after converting to sinus will keep the medication with plan to start if caused back to A. fib Pain control with oral and IV acetaminophen Had an echo done on February 03 which was normal might not need a repeat echo at the moment Trend troponin and EKG 3 samples Heart health diet Continue with Eliquis for DVT prophylaxis AND Alps Patient is full code As Ranked By This Provider Problem List: 1. Atrial fibrillation with rapid ventricular response Core Measures/Misc (04/14) Acute Coronary Syndrome ACS Diagnosis: No Congestive Heart Failure Congestive Heart Failure Diagnosis No Cerebrovascular Accident CVA/TIA Diagnosis: No VTE (View Protocol) VTE Risk Factors Acute Medical Illness No Mechanical VTE Prophylaxis d/t N/A MechProphylax Ordered No VTE Pharm Prophylaxis d/t NA PharmProphylax ordered Sepsis (View protocol) Sepsis Present: No If YES complete Sepsis Event Note If YES complete Sepsis Event Note Resident Review Statement Resident Statement: My review as above Fritz Coombs 03/16/18 1532: Core Measures/Misc (04/14) Sepsis (View protocol) If YES complete Sepsis Event Note If YES complete Sepsis Event Note Attending MD Review Statement Attending Statement Attending MD Statement: examined this patient, discuss w/resident/PA/CLIENT SERVICES REPRESENTATIVE, agreed w/resident/PA/CLIENT SERVICES REPRESENTATIVE, reviewed EMR data (avail) Attending Assessment/Plan: 62 yr old M with pmh of atrial fibrillation on eliquis, cardizem and Multaq , HLD, on disability secondary to bipolar disoder, anxiety, and obesity who presented to the ER for the third time in five weeks with two previous encounters at [facility] due to AFIB with RVR. Pt was diagnosed recetly on AFIB. Pt started having symptoms this am and noted his HR around 150 on his Fitbit and then used a cardio diagnostic bruno on his phone which indicated that he has some arrhythmia and prompted him to come to ER for evaluation. Reports some chest discomfort and associates it with some indigestion. EKG doen in ER showed some ST depression in lateral leads and low amplitude in leads but reviewing previous ekg showed low amplitude too. Afib with rvr and EKG changes. D/w Dr Henry from cardiology . plan is to admit him to medicine for monitoring and management of afib with RVR. pt was given cardizem iv times 2 in er and later on converted spontaneously to NSR before the cardizem drip was started. will get repeat ekg in am and will do serial trops. f /u on cardiology notes. Will check on TSH level. CXR shows normal cardiac silhouette. Echo done recently showed no pericardial effusion.
[2018-03-16 15:02] VITALS: BP 120/78
--- NOTE | 2018-03-16 15:31 | Admission Certification ---
Admission Certification Certification Statement - As attending physician, I certify that at the time of - admission, based on clinical presentation, severity of - symptoms, need for further diagnostic testing and - therapeutic interventions, and risk of adverse outcomes - without in-hospital treatment, in my clinical assessment, - this patient requires an acute hospital stay for a minimum - of two nights or longer. I have also considered psychsocial - factors such as support system, advanced age, financial - issues, cognitive issues, and failed out-patient treatments, - past re-admission history, safety of patient, and lack of - compliance as applicable. Specific rationale supporting this admission is: afib with rvr and ekg changes
--- NOTE | 2018-03-16 20:43 | Cons- Cardiology ---
General Information and HPI Consulting Request Date of Consult: 03/16/18 Requested By: Corin JACKSON,Fritz Edwards History of Present Illness: This patient is a 62 year old male with history of dyslipidemia who was initially seen for chest discomfort and was discovered to have paroxysmal atrial fibrillation. He was started on Eliquis for stroke prophylaxis and Cardizem for rate control. He now returns to the ER with complaints of a mild chest tightness , rapid palpitations and mild shortness of breath. He was noted to be in atrial fibrillation with rapid heart rate. He spontaneously converted back to a sinus rhythm. To review his past history he initially presented to the ER for evaluation of a single episode of chest discomfort. It was described as a moderate pressure sensation that was not radiating and lasted for about 30 minutes before resolving. He also noted mild shortness of breath and palpitations. The chest discomfort began while sitting in a car having an emotional discussion with a friend. No reported nasuea, vomiting or diaphoresis. Recently this patient has had episodes of diarrhea and is currently being worked up by GI for a possible problem with malabsorption. In the ER the patient was found to be in atrial fibrillation with rapid heart rate. While in [facility] the patient sponteneously converted back into a sinus rhythm and was started on Eliquis for stroke prophylaxis and Cardizem CD 120mg daily for control of his heart rate and blood pressure. His stress test showed an inferior fixed defect verses diaphragratic attenuation without ischemia. Cardiac workup also included an echocardiogram showing a normal EF of 60% with mild left ventricular hypertrophy , mild left atrial enlargement, mild mitral regurgitation, trace tricuspid and aortic regurgitation. The patient reports having similar symptoms and atrial fibrillation a few months ago in the setting of alcohol abuse. He is not been drinking since he was told that he has fatty liver disease. Allergies/Medications Allergies: Coded Allergies: NO KNOWN ALLERGIES (06/02/12) Home Med List: Apixaban (Eliquis) 5 MG TABLET 1 TAB PO BID A-FIB . Aspirin (Aspirin*) 81 MG TAB.CHEW 1 TAB PO DAILY HEART HEALTH . Bupropion HCl (Wellbutrin Sr) 200 MG TABLET.ER 1 TAB PO DAILY DEPRESSION ( Reported) Diltiazem Cd (Diltiazem ER) 120 MG CAP.ER.DEG 120 MG PO DAILY AFIB . Dronedarone HCl (Multaq) 400 MG TABLET 1 TAB PO BID HEART .400MG BID Gabapentin 300 MG CAPSULE 1 CAP PO TID MENTAL HEATLH (Reported) Lorazepam 1 MG TABLET 1 TAB PO BID PRN ANXIETY (Reported) Review of Systems Review of Systems: A review of systems is unremarkable. 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 Psychosocial History Who Do You Live With? self Services at Home: None Smoking Status: Never Smoked ETOH Use: denies use Illicit Drug Use: denies illicit drug use Exam & Diagnostic Data Vital Signs and I&O Vital Signs Date Time Temp Pulse Resp B/P B/P Pulse O2 O2 Flow FiO2 Mean Ox Delivery Rate 03/16 1655 98 03/16 1502 97.5 86 18 120/78 96 Room Air 03/16 1409 75 18 109/75 98 Room Air 03/16 1324 138 03/16 1229 109 03/16 1226 128 111/61 03/16 1214 Room Air 03/16 1213 124 18 117/74 99 Room Air 03/16 1211 174 18 03/16 1148 97.0 86 18 120/86 97 Room Air Intake & Output 03/16 1600 03/16 0800 03/16 0000 03/15 1600 03/15 0800 03/15 0000 Intake Total 0 Output Total 0 Balance 0 Intake, Oral 0 Output, Urine 0 Patient 229 lb Weight Weight Bed scale Measurement Method Physical Exam: General: WD/overweight male in NAD; alert and oriented x 3 HEENT: NC/AT, PERRL, EOMI Neck: no JVD, no carotid bruit Heart: RRR w/o murmur Lungs: clear bilaterally ABdomen: soft, NT, +ve bowel sounds Extremities: no edema Assessment/Plan Assessment/Plan * This patient has paroxysmal atrial fibrillation with increased heart rate. Continue Multaq 400mg BID to try and maintain a sinus rhythm. Continue Eliquis for stroke prophylaxis and continue his usual dose of Cardizem which is 120mg daily. * We will consider a cardiac catheterization in the near future for unequivocal diagnosis although his recent stress test was negative for ischemia. Check cardiac enzymes. Consult Acknowledgment - Thank you for your consult request.
[2018-03-16 22:18] VITALS: BP 88/60
--- NOTE | 2018-03-17 06:52 | PN- Housestaff ---
Natividad Zabalaesh 03/17/18 0651: Subjective Follow-up For: Afib Tele-Events Since Last Visit: Pt does not feel the palpitations today morning. He converted back to sinus rhythm according to telemetry. Chart shows he dropped to 88/60 overnight. He denies any chest pain headaches dizziness or changes in vision. He denies any new complaints. Review of Systems Constitutional: Reports: see HPI. Objective Last 24 Hrs of Vital Signs/I&O Vital Signs Date Time Temp Pulse Resp B/P B/P Pulse O2 O2 Flow FiO2 Mean Ox Delivery Rate 03/17 1440 98.3 68 16 104/64 97 03/17 0900 106/60 03/17 0734 97.1 66 18 94/62 97 Room Air 03/16 2234 88 92/60 03/16 2218 98.5 76 23 88/60 97 03/16 1655 98 Intake & Output 03/17 1600 03/17 0800 03/17 0000 Intake Total 400 120 120 Output Total 750 Balance -350 120 120 Intake, Oral 400 120 120 Output, Urine 750 Patient 231 lb Weight Weight Bed scale Measurement Method Physical Exam General Appearance: Alert, Cooperative, No Acute Distress Skin Temp/Moisture Exam: Warm/Dry HEENT: Atraumatic, EOMI Cardiovascular: Normal S1, Normal S2 Lungs: Clear to Auscultation, Normal Air Movement Abdomen: Normal Bowel Sounds, Soft, No Tenderness Current Medications: Current Medications Sig/Cresecnio Start time Last Medication Dose Route Stop Time Status Admin Acetaminophen 650 MG Q6P PRN 03/16 1530 AC PO Acetaminophen 1,000 MG Q6P PRN 03/16 1530 AC IV Apixaban 5 MG BID 03/16 2100 AC 03/17 PO 0859 Diltiazem HCl 120 MG DAILY 03/17 0900 AC 03/17 PO 0859 Diltiazem HCl 125 MG Q24H 03/16 1315 DC Sodium Chloride 100 ML IV Dronedarone 400 MG BID 03/16 2100 AC 03/17 PO 0900 Gabapentin 300 MG TID 03/16 2100 AC 03/17 PO 1309 Hydromorphone HCl 1 MG Q6P PRN 03/16 1530 AC IV Lidocaine 0 .STK-MED ONE 03/16 1657 DC TOP Lorazepam 1 MG BID PRN 03/16 1500 AC 03/16 PO 2033 Omeprazole 40 MG DAILY AC 03/17 0700 AC 03/17 PO 0554 Last 24 Hrs of Lab/Elias Results Last 24 Hrs of Labs/Mics: Laboratory Tests 03/17/18 0641: Anion Gap 9, Estimated GFR > 60, BUN/Creatinine Ratio 17.8, CBC w Diff NO MAN DIFF REQ, RBC 4.63 L, MCV 97.6 H, MCH 33.7 H, MCHC 34.5, RDW 13.1, MPV 8.4, Gran % 63.2, Lymphocytes % 23.8, Monocytes % 5.5, Eosinophils % 6.6 H, Basophils % 0.9, Absolute Granulocytes 5.0, Absolute Lymphocytes 1.9, Absolute Monocytes 0.4, Absolute Eosinophils 0.5, Absolute Basophils 0.1 03/17/18 0010: Troponin I < 0.01 03/16/18 1755: Troponin I < 0.01 Assessment/Plan Assessment: 62 yo M with PMH of HLD, bipolar disorder, anxiety, obesity, Afib on Eliquis 5mg , Multaq 400mg and Cardizem 120mg presented to ED after an episode of "funny chest feeling". Patient was found to have Afib with RVR at 174 and was treated with 2 doses of 10mg IV push Cardizem and patient was converted to NSR. This is the third time within 5 weeks that patient got admitted to [facility] due to A fib. The patient's paroxysmal Afib seems to causes him significant distress when he converts into it. If medical management cannot keep in sinus for a longer duration of time, it would be best to consult EPS to see if electric cardioversion or ablation would be better options. #Paroxysmal Afib with RVR - Continue Elquis 5 mg - Continue Cardizem 120 mg - Continue Multaq 400 mg BID - EPS consult today - Previous stress test shows possible inferior fixed defect #Bipolar Disorder, HLD - Continue home meds DVT ppx: already on eliquis Full Code Problem List: 1. Atrial fibrillation with rapid ventricular response Pain Ratin Pain Location: n/a Pain Goal: Remain pain free Pain Plan: per pathway Tomorrow's Labs & Rationales: None Rosalino JACKSON,Dwain 03/17/18 1330: Attending MD Review Statement Attending Statement Attending MD Statement: examined this patient, discuss w/resident/PA/COMIC ILLUSTRATOR, agreed w/resident/PA/COMIC ILLUSTRATOR, reviewed EMR data (avail), discussed with nursing, discussed with case mgmt, amended to note Attending Assessment/Plan: Patient seen and examined. Resting comfortably not in any acute distress. No issues overnight. He has converted back to normal sinus rhythm. He is asymptomatic and hemodynamically stable at present. Case discussed with cardiology service. He will be evaluated by the electrophysiology service today for scheduling of ablation therapy. His chest discomfort is likely related to his atrial fibrillation. Cardiac enzymes are negative 3. Follow-up with the cardiology service regarding the need for further ischemic workup with a cardiac catheterization. Stress test during previous hospitalization showed inferior fixed defect versus diaphragmatic attenuation without ischemia.
[2018-03-17 07:34] VITALS: BP 94/62
[2018-03-17 08:35] LABS: ABSOLUTE BASOPHIL COUNT 0.1 /CUMM (0.0-0.2); ABSOLUTE EOSINOPHIL COUNT 0.5 /CUMM (0.0-0.7); ABSOLUTE LYMPH COUNT 1.9 /CUMM (1.2-3.4); ABSOLUTE MONOCYTE COUNT 0.4 /CUMM (0.10-0.60); BASOPHIL % 0.9 % (0.0-2.0); EOSINOPHIL % 6.6 % (0-5); GRANULOCYTE % 63.2 % (42.2-75.2); HEMATOCRIT 45.1 % (42-52); MEAN CORPUSCULAR HGB 33.7 PG (27.0-31.0); MEAN CORPUSCULAR HGB CONC 34.5 G/DL (33.0-37.0); MEAN CORPUSCULAR VOLUME 97.6 FL (80.0-94.0); MEAN PLATELET VOLUME 8.4 FL (7.4-10.4); PLATELET COUNT 197 /CUMM (130-400); RBC DISTRIBUTION WIDTH 13.1 % (11.5-14.5); RED BLOOD CELL CT 4.63 /CUMM (4.70-6.10); WHITE BLOOD CELL COUNT 7.9 /CUMM (4.8-10.8)
--- NOTE | 2018-03-17 11:34 | PN- Student ---
Subjective Subjective: 62-year-old male with PMH of HLD, bipolar disorder, anxiety, obesity, Afib on Eliquis 5mg, Multaq 400mg and Cardizem 120mg presented to ED after an episode of palpitation and funny chest feeling. Patient was found to have Afib with RVR at 174 and was treated with 2 doses of 10mg IV push Cardizem and patient was converted to NSR. This is the third time within 5 weeks that patient got admitted to [place] due to A fib. Hospital day 1: Overnight, tele monitor showed NSR 66-75 Patient was interviewed and examined at bed side. There was no acute events overnight. Patient seemed fine and comfortable lying on bed. Patient stated that his BP drop this morning 94/62; but otherwise he had no major complaints. Patient denied SOB, chest pain, palpitation, headache. Current Medications Sig/Cresencio Start time Last Medication Dose Route Stop Time Status Admin Acetaminophen 650 MG Q6P PRN 03/16 1530 AC PO Acetaminophen 1,000 MG Q6P PRN 03/16 1530 AC IV Alprazolam 1 MG ONCE ONE 03/16 1230 DC 03/16 PO 03/16 1231 1230 Alprazolam 0 .STK-MED ONE 03/16 1230 DC PO Apixaban 5 MG BID 03/16 2100 AC 03/17 PO 0859 Diltiazem HCl 120 MG DAILY 03/17 0900 AC 03/17 PO 0859 Diltiazem HCl 125 MG Q24H 03/16 1315 DC Sodium Chloride 100 ML IV Diltiazem HCl 10 MG ONCE ONE 03/16 1230 DC 03/16 IV 03/16 1231 1226 Diltiazem HCl 10 MG ONCE ONE 03/16 1215 DC 03/16 IV 03/16 1216 1211 Diltiazem HCl 0 .STK-MED ONE 03/16 1208 DC .ROUTE Dronedarone 400 MG BID 03/16 2100 AC 03/17 PO 0900 Gabapentin 300 MG TID 03/16 2100 AC 03/17 PO 0859 Hydromorphone HCl 1 MG Q6P PRN 03/16 1530 AC IV Lidocaine 0 .STK-MED ONE 03/16 1657 DC TOP Lorazepam 1 MG BID PRN 03/16 1500 AC 03/16 PO 2033 Omeprazole 40 MG DAILY AC 03/17 0700 AC 03/17 PO 0554 Objective Objective: Vital Signs Date Time Temp Pulse Resp B/P B/P Pulse O2 O2 Flow FiO2 Mean Ox Delivery Rate 03/17 0900 106/60 03/17 0734 97.1 66 18 94/62 97 Room Air 03/16 2234 88 92/60 03/16 2218 98.5 76 23 88/60 97 03/16 1655 98 03/16 1502 97.5 86 18 120/78 96 Room Air 03/16 1409 75 18 109/75 98 Room Air 03/16 1324 138 03/16 1229 109 03/16 1226 128 111/61 03/16 1214 Room Air 03/16 1213 124 18 117/74 99 Room Air 03/16 1211 174 18 03/16 1148 97.0 86 18 120/86 97 Room Air Intake & Output 03/17 1600 03/17 0800 03/17 0000 Intake Total 120 120 Output Total Balance 120 120 Intake, Oral 120 120 Patient 231 lb Weight Weight Bed scale Measurement Method Physical Exam: - Patient is oriented x3, no acute distress, coorporative. - HEENT: NC/AT, EOMI, no lymphadenopathy. - Cardio: normal heart sound, no murmur nor gallop. - Lung: CTA bilaterally. - Abdomen: normal bowel sound, no tenderness. Results Results: Laboratory Tests 03/17/18 0641: Anion Gap 9, Estimated GFR > 60, BUN/Creatinine Ratio 17.8, CBC w Diff NO MAN DIFF REQ, RBC 4.63 L, MCV 97.6 H, MCH 33.7 H, MCHC 34.5, RDW 13.1, MPV 8.4, Gran % 63.2, Lymphocytes % 23.8, Monocytes % 5.5, Eosinophils % 6.6 H, Basophils % 0.9, Absolute Granulocytes 5.0, Absolute Lymphocytes 1.9, Absolute Monocytes 0.4, Absolute Eosinophils 0.5, Absolute Basophils 0.1 03/17/18 0010: Troponin I < 0.01 03/16/18 1755: Troponin I < 0.01 03/16/18 1204: Anion Gap 9, Estimated GFR > 60, BUN/Creatinine Ratio 13.0, Glucose 115 H, Calcium 9.8, Magnesium 2.2, Total Bilirubin 0.8, AST 28, ALT 51, Alkaline Phosphatase 73, Troponin I < 0.01, Total Protein 7.5, Albumin 4.5, Globulin 3.0, Albumin/Globulin Ratio 1.5, TSH &T3 &Free T4 Intrp 3.070, PT 14.2 H, INR 1.30 H, APTT 27, D-Dimer High Sensitivty < 200, CBC w Diff NO MAN DIFF REQ, RBC 5.17, MCV 95.9 H, MCH 33.7 H, MCHC 35.1, RDW 13.1, MPV 8.0, Gran % 67.0, Lymphocytes % 21.4, Monocytes % 5.9, Eosinophils % 5.2 H, Basophils % 0.5, Absolute Granulocytes 6.3, Absolute Lymphocytes 2.0, Absolute Monocytes 0.6, Absolute Eosinophils 0.5, Absolute Basophils 0 Imaging: - CXR is normal, no acute events.. - Previous Echo on 02/03/18 showed EF 60%, no pericardial effusion, mild LAD and LVH Assessment/Plan Assessment: Summary: 62-year-old male with PMH of HLD, bipolar disorder, anxiety, obesity, Afib on Eliquis 5mg, Multaq 400mg and Cardizem 120mg presented to ED after an episode of palpitation and funny chest feeling. Patient was found to have Afib with RVR at 174 and was treated with 2 doses of 10mg IV push Cardizem and patient was converted to NSR. There was no acute events, troponin x3 negative, Echo done on 02/03 with EF 60%, no pericardial effusion and negative stress test. Problem list: - Paroxysmal A-fib with RVR - Bipolar disorder - HLD Plan: #Paroxysmal Afib with RVR: Per cardio note appreciated: - Continue Eliquis 5mg PO BID - Continue Cardizem CD 120mg PO daily - Continue Multaq 400mg PO BID - Consider cardiac cath for future due to repeated Afib in short period of time and a negative stress test. - Anticipated discharge today. #Other medical problems: - Continue home meds. #DVT ppx with Alps. #Heart healthy diet #Full code
--- NOTE | 2018-03-17 13:38 | Patient Discharge Instructions ---
Discharge Instructions General Discharge Information You were seen/treated for: Afib Watch for these problems: Dizziness, chest pain, palpitations. If you have any of these please come to ER. Special Instructions: Please follow up with your rejoiner in 1 week. Continue Multaq 400mg BID Continue Eliquis for stroke prophylaxis Continue his usual dose of Cardizem which is 120mg During Atiral Fibrillation Episodes: Take Cardizem 60mg once and Metopolol 25mg once . Call your rejoiner if you continue to have symptoms for 6 hrs after taking medication. Diet Continue normal diet: No Recommended Diet: Heart Healthy Activity Full Activity/No Limits: No Activity Self Limited: Yes Acute Coronary Syndrome Inclusion Criteria At DC or during hospital stay patient has or had the following: ACS DIAGNOSIS No Discharge Core Measures Meds if any: Prescribed or Continued at Discharge Meds if any: NOT Prescribed or Continued at Discharge Congestive Heart Failure Inclusion Criteria At DC or during hospital stay patient has or had the following: CHF DIAGNOSIS No Discharge Core Measures Meds if any: Prescribed or Continued at Discharge Meds if any: NOT Prescribed or Continued at Discharge Cerebrovascular accident Inclusion Criteria At DC or during hospital stay patient has or had the following: CVA/TIA Diagnosis No Discharge Core Measures Meds if any: Prescribed or Continued at Discharge Meds if any: NOT Prescribed or Continued at Discharge Venous thromboembolism Inclusion Criteria VTE Diagnosis No VTE Type NONE VTE Confirmed by (Test) NONE Discharge Core Measures - Per Current guidelines, there needs to be overlap - treatment for the first 5 days of Warfarin therapy. - If discharged on Warfarin prior to 5 days of - overlap therapy, the patient will need to be - assessed for post discharge needs including - *Post discharge parental anticoagulation - *Warfarin and/or parental anticoagulation education - *Follow up date to check INR post discharge At least 5 days overlap therapy as Inpatient No Meds if any: Prescribed or Continued at Discharge Note: Overlap Therapy is Warfarin and Anticoagulant Meds if any: NOT Prescribed or Continued at Discharge
[2018-03-17 14:40] VITALS: BP 104/64; BP 130/70
--- NOTE | 2018-03-17 19:03 | Cons- Cardiology ---
General Information and HPI Consulting Request Date of Consult: 03/17/18 Requested By: Rosalino JACKSON,Dwain Henry MD PhD Reason for Consult: I was asked to see this patient in regards to highly symptomatic rapidly conducted paroxysmal atrial fibrillation. Source of Information: patient, old records Exam Limitations: no limitations History of Present Illness: To review Mr. Vazquez is a very pleasant 62-year-old man who has a history of hypertension hyperlipidemia bipolar disorder anxiety. He remembers in March 2017 after drinking fairly heavily having rapid palpitations with a heart rate to the 150s but after few hours this resolved after he went to sleep and woke up. At that point he stopped drinking alcohol. Roughly in September or October of this year without any associated alcohol he again had rapid palpitations and went to sleep and again these resolved. He actually came to the hospital with the same symptoms on 02/03/2018 and at that point was documented to have rapidly conducted atrial fibrillation. He was begun on Eliquis and Cardizem at that time. Echocardiogram done on 02/13 showed an EF of 60% there was mild left atrial enlargement with a left atrial size of 4.1 cm. He returned on 02/24/2018 again with rapid palpitations and having skipped his medications. At that point he was begun on Multaq 400 mg twice daily. He is now currently admitted on 03/16/18. Early in the morning at roughly 6 AM he developed rapid palpitations came to the hospital was still in rapidly conducted A. fib. His first EKG done at 11:48 AM showed him to be in A. fib but by 1416 he was back to sinus rhythm. At this point Dr. Henry thought that an ablation may be the best way to manage him and I was asked to see him in consultation. 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 He has stopped drinking alcohol. Allergies/Medications Allergies: Coded Allergies: NO KNOWN ALLERGIES (06/02/12) Home Med List: Apixaban (Eliquis) 5 MG TABLET 1 TAB PO BID A-FIB . Aspirin (Aspirin*) 81 MG TAB.CHEW 1 TAB PO DAILY HEART HEALTH . Bupropion HCl (Wellbutrin Sr) 200 MG TABLET.ER 1 TAB PO DAILY DEPRESSION ( Reported) Diltiazem Cd (Diltiazem ER) 120 MG CAP.ER.DEG 120 MG PO DAILY AFIB . Dronedarone HCl (Multaq) 400 MG TABLET 1 TAB PO BID HEART .400MG BID Gabapentin 300 MG CAPSULE 1 CAP PO TID MENTAL HEATLH (Reported) Lorazepam 1 MG TABLET 1 TAB PO BID PRN ANXIETY (Reported) Current Medications: Current Medications Sig/Cresencio Start time Last Medication Dose Route Stop Time Status Admin Acetaminophen 650 MG Q6P PRN 03/16 1530 AC PO Acetaminophen 1,000 MG Q6P PRN 03/16 1530 AC IV Apixaban 5 MG BID 03/16 2100 AC 03/17 PO 0859 Diltiazem HCl 120 MG DAILY 03/17 0900 AC 03/17 PO 0859 Dronedarone 400 MG BID 03/16 2100 AC 03/17 PO 0900 Gabapentin 300 MG TID 03/16 2100 AC 03/17 PO 1309 Hydromorphone HCl 1 MG Q6P PRN 03/16 1530 AC IV Lorazepam 1 MG BID PRN 03/16 1500 AC 03/16 PO 2033 Omeprazole 40 MG DAILY AC 03/17 0700 AC 03/17 PO 0554 Review of Systems Review of Systems: Constitutional: Negative for decreased appetite, weakness, malaise/fatigue, weight gain, weight loss HENT: Negative for congestion, hearing loss, hoarse voice, nosebleeds, sore throat, tinnitus Eyes: Negative for blurred vision, double vision, photophobia, redness, visual disturbances Cardiovascular: POSITIVE for chest pain, NEGATIVE FOR shortness of breath, dyspnea on exertion, POSITIVE FOR irregular heartbeat/palpitations, NEGATIVE FOR swelling, near syncope, syncope, orthopnea, paroxysmal nocturnal dyspnea, claudication, cyanosis Respiratory: Negative for cough, hemoptysis, shortness of breath, snoring, sleep apnea/sleep disordered breathing, sputum production, wheezing Endocrine: Negative for cold intolerance, heat intolerance, missed menstrual periods Hematologic/Lymphatic: Negative for adenopathy, abnormal bleeding, easy bruisability Skin: Negative for flushing, itching, rashes, skin cancer/suspicious lesions Musculoskeletal: Negative for arthritis, back pain, joint swelling, muscle cramps, muscle weakness Gastrointestinal: Negative for abdominal pain, change in bowel habits, constipation, diarrhea, dysphagia, heartburn, hemorrhoids, melena, nausea, vomiting Genitourinary: Negative for urinary incontinence, dysuria, flank pain, frequency , hematuria, nocturia, urgency Neurological: Negative for excessive daytime sleepiness, dizziness, focal weakness, headaches, lightheadedness, numbness, paresthesias, seizures, tremors, vertigo Psychiatric/behavioral: Negative for depression, hallucinations, memory loss, substance abuse, suicidal ideas, thoughts of violence, insomnia, POSITIVE FOR nervousness/anxiety Allergic/Immunologic: Negative for environmental allergies ALL OTHER SYSTEMS REVIEWED AND ARE NEGATIVE Past History Travel History Traveled to [place] past 21 day No Medical History Neurological: NONE EENT: NONE Cardiovascular: AFIB, hyperlipidemia Respiratory: NONE Gastrointestinal: NONE Hepatic: NONE Renal: NONE Musculoskeletal: gout Psychiatric: bipolar disease Endocrine: NONE Blood Disorders: NONE Cancer(s): NONE 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 Psychosocial History Who Do You Live With? self Services at Home: None Smoking Status: Never Smoked ETOH Use: denies use Illicit Drug Use: denies illicit drug use Exam & Diagnostic Data Vital Signs and I&O Vital Signs Date Time Temp Pulse Resp B/P B/P Pulse O2 O2 Flow FiO2 Mean Ox Delivery Rate 03/17 1440 98.3 68 16 104/64 97 03/17 0900 106/60 03/17 0734 97.1 66 18 94/62 97 Room Air 03/16 2234 88 92/60 03/16 2218 98.5 76 23 88/60 97 Intake & Output 03/17 1600 03/17 0800 03/17 0000 03/16 1600 03/16 0800 03/16 0000 Intake Total 400 120 120 0 Output Total 750 0 Balance -350 120 120 0 Intake, Oral 400 120 120 0 Output, Urine 750 0 Patient 231 lb 229 lb Weight Weight Bed scale Bed scale Measurement Method Physical Exam: General/Constitutional: Oriented to person, place, and time. In no distress. Well-developed, well-nourished. Vital signs: see above. Head: Normocephalic/atraumatic Eyes: No xanthelasma or scleral icterus. Conjunctivae normal. Mouth: Moist mucous membranes without pallor or cyanosis Neck: Supple. No jugular venous distention, carotid bruits, thyromegaly Thorax/lungs/pulmonary: No chest deformity. Effort normal without respiratory distress. Lungs clear without wheezes or rales. Heart/Cardiovascular: Normal S1, S2 without murmurs, S3, or S4 Abdomen/GI: No distention, tenderness or masses Extremities: No cyanosis, clubbing, or edema Neuro: Alert and oriented to person, place, time. Grossly non-focal. Skin: Warm and dry. No diaphoresis. No major rashes. No erythema. No pallor or cyanosis. Psychiatric: Normal mood and affect, behavior appears normal. Diagnostic Data EKG Results His first EKG at 1148 on March 16 shows rapidly conducted atrial fibrillation. Second EKG by 1416 in the afternoon shows sinus rhythm. Assessment/Plan Assessment/Plan My assessment is that Mr. Vazquez has highly symptomatic rapidly conducted paroxysmal atrial fibrillation. Despite compliance with Multaq he has had breakthroughs. One could recommend changing him to another antiarrhythmic drug but this is unlikely to work in the long-term. Also any other drug use could be associated with proarrhythmia. It would also require a full ischemic evaluation for a 1-C agent or hospitalization for sotalol or Tikosyn. I do agree that ablation is the best approach for him. His success rate would be very reasonable given only borderline LA enlargement and the paroxysmal nature of his atrial fibrillation. He wishes to think about things further. I will tentatively schedule him for the procedure and he has an upcoming appointment with me to discuss things further. In the meantime I discussed with him that he does not need to clark to the hospital for future bouts of A. fib especially as he is chronically anticoagulated. I would recommend treating him with short acting Cardizem 60 mg and metoprolol 25 mg both administered every 6 hours while he is in A. fib until he terminates. I do think it would be much more comfortable with rate control during his episodes. Again we will tentatively begin scheduling him for an ablation and then see him in the office on his previously scheduled appointment. Copies To: Rosalino JACKSON,Dwain; Bharath JACKSON,Kenyon Diana; Elaine JACKSON PHD,Braulio Edwards Consult Acknowledgment - Thank you for your consult request.
--- NOTE | 2018-03-17 19:55 | PN- Cardiology ---
Subjective Subjective: * Patient feels better. No chest discomfort. * Normal cardiac enzymes. * sinus rhythm Objective Vital Signs and I&Os Vital Signs Date Time Temp Pulse Resp B/P B/P Pulse O2 O2 Flow FiO2 Mean Ox Delivery Rate 03/17 1440 98.3 68 16 104/64 97 03/17 0900 106/60 03/17 0734 97.1 66 18 94/62 97 Room Air 03/16 2234 88 92/60 03/16 2218 98.5 76 23 88/60 97 Intake & Output 03/17 0803/17 0000 03/16 1600 03/16 0803/16 0000 Intake Total 400 120 120 0 Output Total 750 0 Balance -350 120 120 0 Intake, Oral 400 120 120 0 Output, Urine 750 0 Patient 231 lb 229 lb Weight Weight Bed scale Bed scale Measurement Method Physical Exam: General: WD/overweight male in NAD; alert and oriented x 3 HEENT: NC/AT, PERRL, EOMI Neck: no JVD, no carotid bruit Heart: RRR w/o murmur Lungs: clear bilaterally ABdomen: soft, NT, +ve bowel sounds Extremities: no edema Assessment/Plan Assessment/Plan * This patient has paroxysmal atrial fibrillation with increased heart rate. Continue Multaq 400mg BID to try and maintain a sinus rhythm. Continue Eliquis for stroke prophylaxis and continue his usual dose of Cardizem which is 120mg daily. He will try a pill in the pocket approach to controlling his atrial fibrillation. As per Dr. Sinha's recommendation the patient should take Cardizem 60mg and Metopolol 25mg every 6 hours until it stops if he goes into atrial fibrillation. He is also being set up for an atrial fibrillation ablation. * We will consider a cardiac catheterization in the near future for unequivocal diagnosis although his recent stress test was negative for ischemia. * Okay to discharge to home on the above medications with follow up in the office. Continue telemetry? No
[2018-03-17 22:13] VITALS: BP 118/72
[2018-03-18 08:03] VITALS: BP 110/68
[2018-03-18 08:16] VITALS: BP 104/72
--- NOTE | 2018-03-18 10:16 | PN- Housestaff ---
Noam Zabala 03/18/18 1016: Subjective Follow-up For: Afib Subjective: Patient says he had a good sleep. He had no feeling of palpitations. He is happy after speaking to the wire products inspector yesterday regarding his treatment options. Review of Systems Constitutional: Reports: see HPI. Objective Last 24 Hrs of Vital Signs/I&O Vital Signs Date Time Temp Pulse Resp B/P B/P Pulse O2 O2 Flow FiO2 Mean Ox Delivery Rate 03/18 0816 65 104/72 03/18 0803 98.4 90 20 110/68 94 03/17 2213 98.1 65 18 118/72 96 03/17 2206 65 118/72 Intake & Output 03/18 1600 03/18 0800 03/18 0000 Intake Total Output Total Balance Patient 332 lb Weight Physical Exam General Appearance: Alert, Cooperative HEENT: Atraumatic, EOMI Cardiovascular: Normal S1, Normal S2 Lungs: Clear to Auscultation, Normal Air Movement Abdomen: Normal Bowel Sounds, Soft, No Tenderness Assessment/Plan Assessment: 62 yo M with PMH of HLD, bipolar disorder, anxiety, obesity, Afib on Eliquis 5mg , Multaq 400mg and Cardizem 120mg presented to ED after an episode of "funny chest feeling". Patient was found to have Afib with RVR at 174 and was treated with 2 doses of 10mg IV push Cardizem and patient was converted to NSR. This is the third time within 5 weeks that patient got admitted to [facility] due to A fib. The patient's paroxysmal Afib seems to causes him significant distress when he converts into it. EPS saw patient and gave several recommendations about chemical, electrical cardioversion, and finally ablation. Patient will consider options. He is stable and will be D/C'd today. #Paroxysmal Afib with RVR - Continue Elquis 5 mg - Continue Cardizem 120 mg (long acting) - Continue Multaq 400 mg BID - EPS and Cardiology recs appreciated: - Continue current regimen, but use 60mg Cardizem (short acting) with metoprolol 25mg (short acting) during Afib episodes, call gaming director if no improvement within 6hrs for further management - Previous stress test shows possible inferior fixed defect #Bipolar Disorder, HLD - Continue home meds DVT ppx: already on eliquis Full Code Problem List: 1. Atrial fibrillation with rapid ventricular response Pain Ratin Pain Location: n/a Pain Goal: Remain pain free Pain Plan: pathway Tomorrow's Labs & Rationales: none Dwain Jerry MD 03/18/18 1312: Attending MD Review Statement Attending Statement Attending MD Statement: examined this patient, discuss w/resident/PA/COMMERCIAL SALES DIRECTOR, agreed w/resident/PA/COMMERCIAL SALES DIRECTOR, reviewed EMR data (avail), discussed with nursing, discussed with case mgmt, amended to note Attending Assessment/Plan: Patient seen and examined. Resting comfortably not in any acute distress. No issues overnight. He remains in normal sinus rhythm. He was seen by wire products inspector yesterday with recommendations for follow-up as an outpatient for possible ablation therapy. Recommendations from the wire products inspector on patient's gaming director to continue long-acting Cardizem. Patient will also be provided with prescriptions for Cardizem and metoprolol to use as needed if he develops atrial fibrillation. This has been explained in detail to the patient. He is to follow-up with the cardiology service as an outpatient.
[2018-03-18] MEDS ORDERED: METOPROLOL TART25 M1 PO ×2 (11:55→15:50)
[2018-03-18] MEDS ORDERED: CARDIZEM60 M1 PO ×2 (11:59→15:50)
--- NOTE | 2018-03-18 13:21 | Discharge Summary ---
Visit Information Visit Dates Admission Date: 03/16/18 Discharge Date: 03/18/18 Hospital Course Course Attending Physician: Dwain Jerry MD Primary Care Physician: Sunny Berger MD Hospital Course: 62 yo M with PMH of HLD, bipolar disorder, anxiety, obesity, Afib on Eliquis 5mg , Multaq 400mg and Cardizem 120mg presented to ED after an episode of "funny chest feeling". Patient was found to have Afib with RVR at 174 and was treated with 2 doses of 10mg IV push Cardizem and patient was converted to NSR. This is the third time within 5 weeks that patient got admitted to [facility] due to A fib. The patient's paroxysmal Afib caused him significant distress when he converted into it. After 2 pushes of cardizem in ED, patient converted back to NSR. He had no further episodes or symptoms during his hospital course. EPS saw patient and gave several recommendations about chemical, electrical cardioversion, and finally ablation. Patient will consider options. EPS and Cardiology recommended to continue current regimen, but use 60mg Cardizem (short acting) with metoprolol 25mg (short acting) during Afib episodes (Pill in the box method). He was advised to call pin drafter operator immediately if no improvement of his symptoms within 6hrs for further management and instructions. He was also advised to followup with his PCP, Cr[facility]cher, and EPS Physicans within 1 week of discharge. Allergies: Coded Allergies: NO KNOWN ALLERGIES (06/02/12) Disposition Summary Disposition Principal Diagnosis: AFib Additional Diagnosis: None Discharge Disposition: home or self care Discharge Instructions General Discharge Information Code Status: Full Code Patient's Diet: Heart Healthy Patient's Activity: As tolerated Follow-Up Instructions/Appts: He was also advised to followup with his PCP, Crab Butcher, and EPS Physicans within 1 week of discharge. Medications at Discharge Discharge Medications: Continue taking these medications: Bupropion HCl (Wellbutrin Sr) 200 MG TABLET.ER 1 Tablet ORAL DAILY Comments: NOT GIVEN Gabapentin (Gabapentin) 300 MG CAPSULE 1 Capsule ORAL THREE TIMES DAILY Comments: Last Taken: 03/18/18 Time: 8:15 AM Aspirin (Aspirin*) 81 MG TAB.CHEW 1 Tablet ORAL DAILY Qty = 30 Instructions: . Comments: NOT GIVEN Diltiazem Cd (Diltiazem ER) 120 MG CAP.ER.DEG 120 Milligram ORAL DAILY Qty = 30 Instructions: . Comments: Last Taken: 03/18/18 Time: 8:15 AM Apixaban (Eliquis) 5 MG TABLET 1 Tablet ORAL TWICE DAILY Qty = 30 Instructions: . Comments: Last Taken: 03/18/18 Time: 8:15 AM Lorazepam (Lorazepam) 1 MG TABLET 1 Tablet ORAL TWICE DAILY as needed for ANXIETY Comments: Last Taken: 03/16/18 Time: 8:30 PM Dronedarone HCl (Multaq) 400 MG TABLET 1 Tablet ORAL TWICE DAILY Qty = 60 Instructions: .400MG BID Comments: Last Taken: 03/18/18 Time: 8:15 AM Start taking the following new medications: Metoprolol Tartrate (Metoprolol Tartrate) 25 MG TABLET 1 Tablet ORAL EVERY SIX HOURS Qty = 60 No Refills Instructions: Take 1 tab every 6 hours only when in Afib(have palpitaions,HR >120 chest pain). Comments: NOT GIVEN Diltiazem HCl (Cardizem) 60 MG TABLET 1 Tablet ORAL EVERY SIX HOURS Qty = 30 No Refills Instructions: tAKE 1 TAB (60MG) only when in AFIB (Chest pain, paiplitation, HR > 120). Comments: NOT GIVEN
== END 2018-03-18 12:50 | DRG 310 ==
LOC: ERH 11:42 → ERHI 13:16 → 1NO 13:16 → ENRESERV 13:32 → 1NO 14:48
PROVIDERS: Physician Assistant Medical; Preventive Medicine Public Health & General Preventive Medicine
DX: I48.0 Paroxysmal atrial fibrillation (principal); Z79.01 Long term (current) use of anticoagulants; F31.9 Bipolar disorder, unspecified; E66.9 Obesity, unspecified; Z68.32 Body mass index [BMI] 32.0-32.9, adult; E78.5 Hyperlipidemia, unspecified; F41.9 Anxiety disorder, unspecified
CPT/HCPCS: 1NP; 36592; 71045; 82436; 93005; 93010; 96374; J0131